=== PATIENT | female | born 1960 | race Caucasian/White ===

== ENCOUNTER 2016-05-01 08:26 | Observation (INO) | payer OTHER ==
[~2016-05-01] VITALS: Ht 170.2 cm; Wt 58.0 kg
[~2016-05-01 08:26] MED LIST: ASPI81TA82 PO; ATOR20TA PO; BRIL90TA PO; CLIN1CAP5 PO; HYDR-3533 PO; MIDO10TA4 PO; RANO500 PO; ZOFR4TAB3 SL
[2016-05-01 08:44] VITALS: BP 126/84; PULSE 91; RESP 16; TEMP 97.9; O2SAT 98
[2016-05-01] MEDS ORDERED: SODIUM CHLOR 0.9% 1000 ML INJ 1,000 ML IV SCH ×2 (08:57→11:33)
[2016-05-01] MEDS ORDERED: SODIUM CHLORIDE 0.9% FLUSH 5 ML FLUSH IVF PRN ×2 (09:00→11:45)
[2016-05-01] MEDS ORDERED: ONDANSETRON HCL 4 MG/2 ML VIAL IVP ONE (09:00)
[2016-05-01] MEDS ORDERED: MORPHINE SULFATE 4 MG/ML INJ IV PUSH ONE ×2 (09:00→11:30)
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
[2016-05-01] MEDS ORDERED: PRIL20CA9 PO (09:08)
[2016-05-01] MEDS ORDERED: MICO1CRE2 VAGINAL (09:08)
[2016-05-01] MEDS ORDERED: ATOR20TA15 PO (09:08)
[2016-05-01] MEDS ORDERED: TICA1TAB PO (09:08)
[2016-05-01] MEDS ORDERED: ASPI1TAB69 PO (09:08)
[2016-05-01] MEDS ORDERED: RANO500 PO (09:08)
[2016-05-01 09:30] LABS: BLOOD, URINE NEG (NEG); GLUCOSE,URINE NEG (NEG); KETONE, URINE NEG (NEG); NITRITE,URINE NEG (NEG)
[2016-05-01 09:32] LABS: METHOD OF COLLECTION CLEAN CATCH; URINE COLOR YELLOW (YELLW/STRAW)
[2016-05-01 09:39] LABS: COMMENT (UR) CULT NOT INDICATED; CULTURE IF INDICATED CULT NOT INDICATED; RBC, URINE 0-3 /hpf (0-3); SQUAMOUS EPITHELIAL CELL URINE 0-5 /hpf (0-5); WBC, URINE 0-2 /hpf (0-5)
--- NOTE | 2016-05-01 09:47 | RADHPO ---
EXAM DATE/TIME: 05/01/2016 09:06 [facility] COMPARISON: No previous studies available for comparison. INDICATIONS : Bilateral flank pain for three days. ORAL CONTRAST: No oral contrast ingested. RADIATION DOSE: 6.82 CTDIvol (mGy) MEDICAL HISTORY : Renal calculi. Pancreatitis. SURGICAL HISTORY : Cholecystectomy. Hysterectomy. ENCOUNTER: Initial ACUITY: 3 days PAIN SCALE: 8/10 LOCATION: Bilateral flank TECHNIQUE: Volumetric scanning of the abdomen and pelvis was performed. Using automated exposure control and ad justment of the mA and/or kV according to patient size, radiation dose was kept as low as reasonably achievable to obtain optimal diagnostic quality images. FINDINGS: LOWER LUNGS: The visualized lower lungs are clear. LIVER: Cholecystectomy clips. Liver is within normal limits. SPLEEN: Normal size without lesion. PANCREAS: Within normal limits. KIDNEYS: Normal in size and shape. There is no mass, stone, or hydronephrosis. ADRENAL GLANDS: Within normal limits. VASCULAR: There is no aortic aneurysm. BOWEL/MESENTERY: Multiple colonic diverticula. No evidence of acute diverticulitis. No evidence of bowel dilatation. N o free air or free fluid. Appendix within normal limits. ABDOMINAL WALL: Within normal limits. RETROPERITONEUM: There is no lymphadenopathy. BLADDER: No wall thickening or mass. REPRODUCTIVE: Prostate calcifications noted. INGUINAL: There is no lymphadenopathy or hernia. MUSCULOSKELETAL: Within normal limits for patient age. CONCLUSION: 1. No acute findings in the abdomen or pelvis. 2. Status post cholecystectomy. 3. Colonic diverticulosis. Thierry Holt MD on May 01, 2016 at 9:34 Board Certified Radiologist. This report was verified electronically.
[2016-05-01 09:56] LABS: AUTOMATED NEUTROPHIL # 2.2 TH/MM3 (1.8-7.7); BASOPHIL % 0.8 % (0.0-2.0); EOSINOPHIL # 0.1 TH/MM3 (0-0.4); EOSINOPHIL % 1.4 % (0.0-4.0); HEMATOCRIT 39.8 % (35.0-46.0); HEMO FLAGS DIFF FINAL; LYMPH % 32.5 % (9.0-44.0); LYMPHOCYTE # 1.2 TH/MM3 (1.0-4.8); MEAN CELL VOLUME 87.2 FL (80.0-100.0); MEAN CORPUSCULAR HEMOGLOBIN 29.8 PG (27.0-34.0); MEAN CORPUSCULAR HGB CONC 34.1 % (32.0-36.0); MONO % 8.4 % (0.0-8.0); NEUT % 56.9 % (16.0-70.0); PLATELET COUNT 221 TH/MM3 (150-450); RED BLOOD COUNT 4.56 MIL/MM3 (4.00-5.30); RED CELL DISTRIBUTION WIDTH 12.5 % (11.6-17.2); WHITE BLOOD COUNT 3.8 TH/MM3 (4.0-11.0)
[2016-05-01 10:06] LABS: CHLORIDE 107 MEQ/L (98-107); POTASSIUM 3.9 MEQ/L (3.5-5.1); SODIUM (NA) 143 MEQ/L (136-145)
[2016-05-01 10:10] VITALS: BP 125/58; PULSE 58; RESP 16; O2SAT 99
[2016-05-01 10:10] LABS: ANION GAP 8 MEQ/L (5-15); BICARBONATE 27.9 MEQ/L (21.0-32.0)
[2016-05-01 10:11] LABS: APTT (PATIENT) 24.3 SEC (24.3-30.1); BLOOD UREA NITROGEN 14 MG/DL (7-18); INTERNATIONAL NORMALIZED RATIO 0.9 RATIO; PROTHROMBIN TIME - PATIENT 10.3 SEC (9.8-11.6)
[2016-05-01 10:13] LABS: ALT (GPT) 17 U/L (10-53); AST (GOT) 10 U/L (15-37); GLOMERULAR FILTRATION RATE 93 ML/MIN (>89)
[2016-05-01 10:15] LABS: TOTAL BILIRUBIN ADULT 0.5 MG/DL (0.2-1.0)
[2016-05-01 10:16] LABS: ALKALINE PHOSPHATASE 60 U/L (45-117)
[2016-05-01] MEDS ORDERED: ONDANSETRON HCL 4 MG/2 ML VIAL IV PUSH ONE (10:30)
[2016-05-01 10:43] VITALS: RESP 16; O2SAT 99
[2016-05-01] MEDS ORDERED: FLUCONAZOLE 100 MG TAB PO ONE (10:45)
[2016-05-01] MEDS ORDERED: ASPIRIN 81 MG CHEW TAB PO ONE (11:00)
[2016-05-01 11:10] LABS: CREATINE KINASE 63 U/L (26-192)
--- NOTE | 2016-05-01 11:11 | RADHPO ---
EXAM DATE/TIME: 05/01/2016 11:02 [facility] COMPARISON: No previous studies available for comparison. INDICATIONS : Chest pain. MEDICAL HISTORY : None. SURGICAL HISTORY : None. ENCOUNTER: Initial ACUITY: 1 day PAIN SCORE: 7/10 LOCATION: Bilateral chest FINDINGS: A single view of the chest demonstrates the lungs to be symmetrically aerated without evidence of mas s, infiltrate or effusion. The cardiomediastinal contours are unremarkable. Osseous structures are intact. CONCLUSION: 1. No acute cardiopulmonary findings. Paulino Ribeiro MD on May 01, 2016 at 11:09 Board Certified Radiologist. This report was verified electronically.
[2016-05-01 11:30] VITALS: BP 137/59; PULSE 67; RESP 16; O2SAT 100
[2016-05-01] MEDS ORDERED: LIDOCAINE VISCOUS 2% SOLN 15 ML UDC PO ONE (11:30)
[2016-05-01] MEDS ORDERED: ALUMINUM/MAGNESIUM/SIMETH 30 ML CUP PO ONE (11:30)
[2016-05-01] MEDS ORDERED: ONDANSETRON HCL 4 MG/2 ML VIAL IV PRN (11:45)
[2016-05-01] MEDS ORDERED: ACETAMINOPHEN 500 MG CPLT PO PRN (11:45)
[2016-05-01] MEDS ORDERED: NITROGLYCERIN 0.4 MG SL 25 TABS/BTL SL PRN (11:45)
[2016-05-01] MEDS ORDERED: MORPHINE SULFATE 4 MG/ML INJ IV PRN (11:45)
[2016-05-01] MEDS ORDERED: ACETAMINOPHEN/HYDROcodone 325 MG/7.5 MG TAB PO PRN (11:45)
[2016-05-01 13:35] LABS: CREATINE KINASE 56 U/L (26-192)
[2016-05-01 14:51] LABS: CHLAMYDIA PCR NOT DETECTED (NOT DETECT); NEISSERIA PCR NOT DETECTED (NOT DETECT)
--- NOTE | 2016-05-01 14:58 | HHI.HP ---
[facility] Primary Care Physician No Primary Care Physician Admission Diagnosis chest pain, lower back pain Diagnoses: (1) Low back pain Diagnosis: Principal (2) Chest pain Diagnosis: Principal (3) Coronary artery disease Diagnosis: Secondary (4) Hyperlipidemia Diagnosis: Secondary (5) History of coronary artery stent placement Diagnosis: Secondary Chief Complaint: Back pain Travel History International Travel<30 Days: No Contact w/Intl Traveler <30 Da: No Traveled to Known Affected Are: No History of Present Illness 55-year-old female with known history of coronary disease, hyperlipidemia, history kidney stones who presented to hospital because of back pain. Patient states for the last 3 days she has been having progressive lower back pain radiating around her right side down into her right groin. She does have history of kidney stones that she thought that it was related to that. The patient did come to emergency department for evaluation. Patient did have full workup done to include pelvic cultures, x-rays, laboratory studies without any significant findings. Patient denied any loss of bowel or bladder control. No unilateral weakness, no paresthesia. While patient was in the ER she developed a midsternal chest pain radiating into her back. She denied any nausea, vomiting, diaphoresis, shortness of breath, dyspnea. Patient was given GI cocktail and morphine. Within 30 minutes the pain resolved and she has not had any recurrent pain. The patient would like to go home. However, patient does have increased risk factors to include age, coronary artery disease, family history of heart disease, history of tobacco use. Is recommended by the ER physician that the patient be observed in the chest pain center for further evaluation. Review of Systems Constitutional: DENIES: Diaphoretic episodes, Fatigue, Fever, Weight gain, Weight loss, Chills, Dizziness, Change in appetite, Night Sweats Eyes: DENIES: Blurred vision, Diplopia, Eye inflammation, Eye pain, Vision loss , Double Vision Ears, nose, mouth, throat: DENIES: Vertigo, Nasal discharge, Throat pain, Ear Pain, Running Nose, Sinus Pain Respiratory: DENIES: Apneas, Cough, Snoring, Wheezing, Hemoptysis, Sputum production, Shortness of breath Cardiovascular: COMPLAINS OF: Chest pain, DENIES: Palpitations, Syncope, Dyspnea on Exertion, Lower Extremity Edema, Orthopnea Gastrointestinal: DENIES: Abdominal pain, Black stools, Bloody stools, Constipation, Diarrhea, Nausea, Vomiting, Difficulty Swallowing, Anorexia Musculoskeletal: COMPLAINS OF: Back pain Neurologic: DENIES: Abnormal gait, Headache, Localized weakness, Paresthesias, Seizures, Speech Problems, Tremor, Poor Balance Past Family Social History Past Medical History Coronary artery disease Hyperlipidemia History of back pain History kidney stone Past Surgical History Cardiac catheterization with stenting Hysterectomy Reported Medications Reported Meds & Active Scripts Active Reported Monistat 3 Vaginal Cream (Miconazole 3 Vaginal Cream) 4 % Cream 1 Appl VAGINAL HS Prilosec (Omeprazole) 20 Mg Cap 20 Mg PO HS Atorvastatin (Atorvastatin Calcium) 20 Mg Tab 20 Mg PO HS Ranexa ER 12 HR (Ranolazine) 500 Mg Tab 500 Mg PO HS Brilinta (Ticagrelor) 60 Mg Tab 75 Mg PO BID Aspirin 81 Mg Tabdr 81 Mg PO DAILY Allergies: Coded Allergies: Cardizem (Verified Allergy, Severe, Bradycardia, 05/01/16) Imitrex (Verified Allergy, Severe, Bradycardia, 05/01/16) Imdur (Verified Allergy, Intermediate, Bradycardia, 05/01/16) Family History Reviewed and significant for heart disease on both sides of the family. Social History Patient quit smoking 10 years ago, prior to that she smoked one pack of cigarettes every 3 days since she was 21 years old. Denies any alcohol or illicit drugs Physical Exam Vital Signs Vital Signs Date Time Temp Pulse Resp B/P Pulse Ox O2 Delivery O2 Flow Rate FiO2 05/01/16 12:38 16 05/01/16 11:30 67 16 137/59 100 Room Air 05/01/16 10:43 16 99 Room Air 05/01/16 10:10 58 16 125/58 99 Room Air 05/01/16 09:48 16 05/01/16 08:44 97.9 91 16 126/84 98 Physical Exam GENERAL: Well-developed, well-nourished, in no acute distress. alert and orientated HEENT: Head is normocephalic without any lesions or masses noted. Facial features are symmetric. Eyes: Pupils equal round reactive to light. Extraocular muscles are intact. Conjunctivae were clear. Oropharyngeal: Pharynx without any erythema edema. Tongue is midline without deviation. Buccal mucosa is moist without any masses or lesions NECK: Supple without any masses. Trachea midline no deviation. No JVD, no bruits are appreciated CARDIAC: Regular rhythm, regular rate. S1/S2 are heard. No murmurs gallops or rubs. LUNGS: Clear to auscultation bilaterally. No wheeze, rhonchi or rales. No use of accessory muscles on inspiration or expiration. ABDOMEN: Soft, nontender. Nondistended. Bowel sounds heard in all 4 quadrants. No organomegaly or masses. Negative rebound, negative guarding EXTREMITIES: No edema, pulses are equal bilaterally. No cyanosis or clubbing NEUROLOGY: Mood and affect appear appropriate. Cranial nerves II through XII grossly intact. Muscle strength 5/5 in upper and lower extremities bilaterally. Deep tendon reflexes are 2+ in upper and lower extremities bilaterally. Laboratory Laboratory Tests Test 05/01/16 05/01/16 05/01/16 05/01/16 09:20 09:40 10:27 13:00 Urine Collection Type CLEAN CATCH Urine Color YELLOW Urine Turbidity CLEAR Urine pH 6.0 Urine Specific [place] 1.025 Urine Protein NEG Urine Glucose (UA) NEG Urine Ketones NEG Urine Occult Blood NEG Urine Nitrite NEG Urine Bilirubin NEG Urine Leukocyte Esterase NEG Urine RBC 0-3 Urine WBC 0-2 Urine Squamous Epithelial 0-5 Cells Microscopic Urinalysis Comment CULT NOT INDICATED White Blood Count 3.8 Red Blood Count 4.56 Hemoglobin 13.6 Hematocrit 39.8 Mean Corpuscular Volume 87.2 Mean Corpuscular Hemoglobin 29.8 Mean Corpuscular Hemoglobin 34.1 Concent Red Cell Distribution Width 12.5 Platelet Count 221 Mean Platelet Volume 8.3 Neutrophils (%) (Auto) 56.9 Lymphocytes (%) (Auto) 32.5 Monocytes (%) (Auto) 8.4 Eosinophils (%) (Auto) 1.4 Basophils (%) (Auto) 0.8 Neutrophils # (Auto) 2.2 Lymphocytes # (Auto) 1.2 Monocytes # (Auto) 0.3 Eosinophils # (Auto) 0.1 Basophils # (Auto) 0.0 CBC Comment DIFF FINAL Differential Comment Prothrombin Time 10.3 Prothromb Time International 0.9 Ratio Activated Partial 24.3 Thromboplast Time Sodium Level 143 Potassium Level 3.9 Chloride Level 107 Carbon Dioxide Level 27.9 Anion Gap 8 Blood Urea Nitrogen 14 Creatinine 0.66 Estimat Glomerular Filtration 93 Rate Random Glucose 95 Calcium Level 9.2 Total Bilirubin 0.5 Aspartate Amino Transf 10 (AST/SGOT) Alanine Aminotransferase 17 (ALT/SGPT) Alkaline Phosphatase 60 Total Creatine Kinase 63 56 Troponin I LESS THAN 0.02 LESS THAN 0.02 Total Protein 7.3 Albumin 4.0 Lipase 126 Clue Cells (Wet Prep) NONE SEEN Vaginal Trichomonas (Wet Prep) NONE SEEN Vaginal Yeast (Wet Prep) NONE SEEN Result Diagram: 05/01/16 0940 05/01/16 0940 Imaging Last Impressions Chest X-Ray 05/01/16 1046 Signed Impressions: Service Date/Time: Sunday, May 01, 2016 11:02 - CONCLUSION: 1. No acute cardiopulmonary findings. Paulino Ribeiro MD Abdomen/Pelvis CT 05/01/16 0857 Signed Impressions: Service Date/Time: Sunday, May 01, 2016 09:06 - CONCLUSION: 1. No acute findings in the abdomen or pelvis. 2. Status post cholecystectomy. 3. Colonic diverticulosis. Thierry Holt MD Assessment and Plan Assessment and Plan Chest pain: Patient with increased risk factors to include age, coronary disease, hyperlipidemia, history of tobacco use, family history of heart disease. Patient had been ruled out for acute coronary event with serial cardiac enzymes remain negative. Serial EKG reviewed by myself and shows sinus rhythm with bradycardia. Will perform a nuclear stress test rule out any underlying ischemia. Patient continue on aspirin and nitroglycerin as needed. Coronary disease, hyperlipidemia: Home medications have been continued Abdominal pain/Low back pain: CT scan does not indicate any abnormality. Wet prep does not indicate any abnormality. Urinalysis is clear. DVT prevention: Sequential compression devices Written by Renato Loaiza PA-C, acting as scribe for Dr. Betancourt on 05/01/16 at 1700. The documentation accurately reflects the work and decisions performed face-to- face by Dr. Betancourt on 05/01/16 at 1700. Discharge disposition Discharge home in stable condition Activity: Ad patricia. Diet: Healthy heart diet Medications per medication reconciliation Follow-up primary medical doctor in one week Problem Qualifiers (1) Low back pain: Qualified Code: M54.5 - Bilateral low back pain without sciatica, unspecified chronicity (2) Chest pain: Qualified Code: R07.9 - Chest pain, unspecified type (3) Coronary artery disease: Qualified Code: I25.10 - Coronary artery disease, angina presence unspecified, unspecified vessel or lesion type, unspecified whether [place] or transplanted heart (4) Hyperlipidemia: Qualified Code: E78.5 - Hyperlipidemia, unspecified hyperlipidemia type Renato Loaiza May 01, 2016 14:58 Nadia Betancourt MD May 01, 2016 17:45
[2016-05-01] MEDS ORDERED: REGADENOSON INJ 0.4 MG/5 ML SYR IV ONE (16:08)
[2016-05-01 16:37] LABS: CREATINE KINASE 52 U/L (26-192)
--- NOTE | 2016-05-01 17:01 | HHI.DCPOC ---
Discharge Care Plan Diagnosis: (1) Chest pain Your Health Problems Are: Chest Pain Goals to Promote Your Health * To prevent worsening of your condition and complications * To maintain your health at the optimal level Directions to Meet Your Goals Take your medications as prescribed Follow your dietary instruction Follow activity as directed Keep your appointments as scheduled Take your immunizations and boosters as scheduled If your symptoms worsen call your PCP, if no PCP go to Urgent Care Center or Emergency Room Smoking is Dangerous to Your Health. Avoid second hand smoke Call the 24-hour hour crisis hotline for domestic abuse at Renato Loaiza May 01, 2016 17:01
--- NOTE | 2016-05-01 17:10 | RADHPO ---
EXAM DATE/TIME: 05/01/2016 16:16 [facility] COMPARISON: No previous studies available for comparison. INDICATIONS : Chest pain and palpitations for 1 day. Angina. Coronary artery disease. DOSE: 25.7 mCi Tc99m Myoview at stress. 8.1 mCi Tc99m Myoview at rest. 0.4 mg Lexiscan STRESS SYMPTOMS: Chest tightness and shortness of breath. EJECTION FRACTION: 67% MEDICAL HISTORY : Cardiovascular disease. Hypertension. SURGICAL HISTORY : Hysterectomy. Cholecystectomy. Coronary artery stent. ENCOUNTER: Initial ACUITY: 1 day PAIN SCALE: 3/10 LOCATION: Bilateral chest TECHNIQUE: The patient underwent pharmacologic stress with infusion of prescribed dose. Continuous ECG tracing was monitored during stress. Gated SPECT imaging was performed after stress and conventional SPECT i maging was performed at rest. The examination was performed on a SPECT/CT scanner, both attenuation and non-corrected datasets were reviewed. FINDINGS: DISTRIBUTION: The maximum perfused segment at stress is in the inferior and lateral wall. PERFUSION STUDY: The pattern of perfusion at stress is within normal limits. GATED STUDY: There is intact wall motion and thickening without hypokinetic or dyskinetic segments. CONCLUSION: 1. No significant reversibility to suggest ischemia. 2. Normal wall motion with ejection fraction 67%. RISK CATEGORY: Low (<1% Annual Mortality Rate) Jaun Salazar MD on May 01, 2016 at 17:08 Board Certified Radiologist. This report was verified electronically.
[2016-05-01 17:25] VITALS: BP 136/58; PULSE 62; RESP 16; O2SAT 98
[2016-05-01] MEDS ORDERED: ZOFR4TAB PO (17:27)
[2016-05-01] MEDS ORDERED: ATORVASTATIN 20 MG TAB PO SCH (21:00)
[2016-05-01] MEDS ORDERED: RANOLAZINE 500 MG EXTENDED RELEASE TAB PO SCH (21:00)
[2016-05-01] MEDS ORDERED: SODIUM CHLORIDE 0.9% FLUSH 5 ML FLUSH IVF SCH (21:00)
[2016-05-01] MEDS ORDERED: TICAGRELOR 60 MG TAB PO SCH (21:00)
[2016-05-01] MEDS ORDERED: PANTOPRAZOLE SOD 20 MG DELAYED RELEASE TAB PO SCH (21:00)
[2016-05-02] MEDS ORDERED: ASPIRIN EC 81 MG TABEC PO SCH (09:00)
[2016-05-02] MEDS ORDERED: PNEUMOCOCCAL POLYVALENT INJ 25 MCG/0.5 ML SYR IM ONE (10:00)
--- NOTE | 2016-05-02 14:32 | EKG ---
Date Performed: 05/01/2016 Time Performed: 15:53:00 PTAGE: 55 years EKG: Sinus rhythm Normal ECG PREVIOUS TRACING : 05/01/2016 13.23 DOCTOR: Lit Spears Interpretating Date/Time 05/02/2016 14:28:46
--- NOTE | 2016-05-02 14:36 | EKG ---
Date Performed: 05/01/2016 Time Performed: 13:23:26 PTAGE: 55 years EKG: Sinus rhythm Normal ECG PREVIOUS TRACING : 05/01/2016 10.51 DOCTOR: Lit Spears Interpretating Date/Time 05/02/2016 14:31:49
--- NOTE | 2016-05-02 14:40 | EKG ---
Date Performed: 05/01/2016 Time Performed: 10:51:44 PTAGE: 55 years EKG: Sinus bradycardia Prolonged QT interval Borderline ECG NO PREVIOUS TRACING DOCTOR: Lit Spears Interpretating Date/Time 05/02/2016 14:34:38
--- NOTE | 2016-05-03 12:36 | TR ---
Date Performed: 05/01/2016 Time Performed: 16:20:57 DOCTOR: Lisa Hayden DRUG LIST: CLINICAL HISTORY: CHEST PAIN REASON FOR TEST: REASON FOR ENDING: OBSERVATION: CONCLUSION: Lexiscan stress test was performed under standard four minute protocol. [place]ion[place] e was injected one minute prior to ending the test. No electrocardiographic abormalities were present to suggest ischemia. Nuclear imaging and interpretation are pending. COMMENTS:
== END 2016-05-01 18:32 | disposition home or self-care (01) ==
LOC: PHED 08:26 → PHEDA 11:31 → UNDOADMOB 11:31 → PHEDA 16:22 → PHEDH 16:22 → UNDODISOB 18:32
PROVIDERS: ADMIT Family Medicine; ATTEND Family Medicine
DX: R07.9 Chest pain, unspecified (principal); I25.10 Atherosclerotic heart disease of native coronary artery without angina pectoris; I10 Essential (primary) hypertension; M54.5 Low back pain; E78.5 Hyperlipidemia, unspecified; E78.00 Pure hypercholesterolemia, unspecified; K57.90 Diverticulosis of intestine, part unspecified, without perforation or abscess without bleeding; Z95.5 Presence of coronary angioplasty implant and graft; Z86.73 Personal history of transient ischemic attack (TIA), and cerebral infarction without residual deficits; Z87.442 Personal history of urinary calculi; Z90.49 Acquired absence of other specified parts of digestive tract; Z87.891 Personal history of nicotine dependence; Z82.49 Family history of ischemic heart disease and other diseases of the circulatory system
CPT/HCPCS: 71010; 74176; 78452; 80053; 81001; 82550; 83690; 84484; 85025; 85610; 85730; 87210; 87491; 87591; 93005; 93017; 96361; 96374; 96375; 96376; 99285; A9502; G0378; J2270; J2405; J2785; J7030

== ENCOUNTER 2016-08-24 10:44 | Emergency (ER) | payer OTHER ==
[~2016-08-24 10:44] MED LIST changes: +ASPI1TAB69 PO; -ASPI81TA82 PO; -ATOR20TA PO; +ATOR20TA15 PO; -BRIL90TA PO; -CLIN1CAP5 PO; -HYDR-3533 PO; +MICO1CRE2 VAGINAL; -MIDO10TA4 PO; +PRIL20CA9 PO; +TICA1TAB PO; +ZOFR4TAB PO; -ZOFR4TAB3 SL
[2016-08-24 10:48] VITALS: BP 131/86; PULSE 69; RESP 20; TEMP 97.9; O2SAT 97
[2016-08-24] MEDS ORDERED: ASPI81CH CHEW (11:07)
--- NOTE | 2016-08-24 11:41 | PD ---
HPI Chief Complaint: Cold / Flu Symptoms Time Seen by Provider: 11:36 Travel History International Travel<30 days: No Contact w/Intl Traveler<30days: No Traveled to known affect area: No History of Present Illness HPI 55-year-old female with history of stents presents to the emergency room for evaluation of cough, congestion, fever, and malaise for the past 9 days. Symptoms started with nonproductive cough and fever. Maximum temperature was 103 one week ago. She has been taking tybh-exp-kvgijse NyQuil, Sudafed, Mucinex, and Robitussin without any relief in symptoms. She reports occasional shortness of breath with coughing and dyspnea on exertion. Patient has been able to work since onset of symptoms. Patient reports worsening of symptoms 2 days ago with recurrence of fever. Her fever 2 days ago was 100.2. Patient smokes one to 2 cigarettes a day. Only medication is baby aspirin daily. PFSH Past Medical History Hx Anticoagulant Therapy: Yes Arthritis: No Asthma: No Autoimmune Disease: No Anxiety: No Depression: No Heart Rhythm Problems: No Cancer: No Cardiovascular Problems: Yes High Cholesterol: Yes Chemotherapy: No Chest Pain: Yes Congestive Heart Failure: No COPD: No Cerebrovascular Accident: Yes (TIA) Coronary Artery Disease: Yes Diabetes: No Diminished Hearing: No Endocrine: No GERD: Yes Genitourinary: No Headaches: Yes Hiatal Hernia: No Immune Disorder: No Kidney Stones: Yes Musculoskeletal: No Neurologic: No Psychiatric: No Reproductive: No Respiratory: No Migraines: Yes Pancreatitis: Yes Pneumonia: Yes Radiation Therapy: No Renal Failure: No Seizures: No Sickle Cell Disease: No Sleep Apnea: No Thyroid Disease: No Ulcer: No Influenza Vaccination: No ?: Not Past Surgical History AICD: No Arteriovenous Shunt: No Cardiac Surgery: Yes (HEART CATHS 6 CARDIAC STENTS) Cholecystectomy: Yes Coronary Artery Bypass Graft: Yes (6 STENTS) Ear Surgery: No Endocrine Surgery: No Eye Surgery: No Gynecologic Surgery: Yes (HYSTERECTOMY) Hysterectomy: Yes Insulin Pump: No Joint Replacement: No Oral Surgery: No Pacemaker: No Thoracic Surgery: No Other Surgery: Yes (HYSTERECTOMY GALLBLADDER ) Social History Alcohol Use: Yes (OCCASIONALLY) Tobacco Use: Yes (2 CIGS PER DAY) Substance Use: No Allergies-Medications (Allergen,Severity, Reaction): Coded Allergies: Cardizem (Verified Allergy, Severe, Bradycardia, 08/24/16) Imitrex (Verified Allergy, Severe, Bradycardia, 08/24/16) Imdur (Verified Allergy, Intermediate, Bradycardia, 08/24/16) Reported Meds & Prescriptions Reported Meds & Active Scripts Active Reported Aspirin 81 Mg Chew 81 Mg CHEW DAILY Atorvastatin (Atorvastatin Calcium) 20 Mg Tab 20 Mg PO HS Ranexa ER 12 HR (Ranolazine) 500 Mg Tab 500 Mg PO HS Brilinta (Ticagrelor) 60 Mg Tab 75 Mg PO BID Review of Systems Except as stated in HPI: all other systems reviewed are Neg Physical Exam Narrative GENERAL: Well-nourished, well-developed female in no acute distress. Afebrile. Ambulatory. SKIN: Focused skin assessment warm/dry. HEAD: Normocephalic. EYES: No scleral icterus. No injection or drainage. ENT: Mucosa pink and moist. No erythema or exudates. No uvular edema. No uvular , palatal, or tonsillar deviation. Airway patent. Nasal turbinates appear normal without nasal blood, purulent drainage or septal hematoma. EARS: Bilateral pinnae and external canals appear within normal limits. Bilateral tympanic membranes without erythema, dullness or perforation. NECK: Supple, trachea midline. No JVD or lymphadenopathy. CARDIOVASCULAR: Regular rate and rhythm without murmurs, gallops, or rubs. RESPIRATORY: Breath sounds equal bilaterally. No accessory muscle use. Data Data Last Documented VS Vital Signs Date Time Temp Pulse Resp B/P Pulse Ox O2 Delivery O2 Flow Rate FiO2 08/24/16 10:48 97.9 69 20 131/86 97 Orders Chest, Pa & Lat (08/24/16 ) Influenzae A/B Antigen (08/24/16 11:35) MDM Medical Decision Making Medical Screen Exam Complete: Yes Emergency Medical Condition: Yes Medical Record Reviewed: Yes Differential Diagnosis Cough, bronchitis, URI, pneumonia Narrative Course 55-year-old female presents to the emergency room for evaluation of nonproductive cough, congestion, fever, and malaise for the past 9 days. Max temperature at home was 103 7 days ago. Ziqf-kxh-roftaay medications have not been improving symptoms. Patient is afebrile and well-appearing in the emergency room. Vital signs stable. No increased work of breathing. Lungs sounds clear and equal bilaterally. Chest x-ray is negative. Given history of fevers, patient will be treated for bacterial sinusitis. Told to follow up with a primary care physician or return for worsening symptoms. She understands and agrees to plan. Diagnosis Primary Impression: Upper respiratory infection Qualified Code: J06.9 - Upper respiratory tract infection, unspecified type Referrals: Primary Care Physician Patient Instructions: General Instructions, Upper Respiratory Infection (ED) Additional Instructions: Rest and drink plenty of fluids. Take azithromycin as directed, until gone. Take guaifenesin with codeine at night as directed, as needed for cough. Apply ice to the affected area for 20 minutes at a time, as needed for pain and swelling. Follow-up with a primary care physician. Return to the emergency room for worsening symptoms. Scripts Azithromycin 250 Mg Pef072 Mg PO DIRECTED #6 TAB Ref 0 Take 2 tabs (500 mg) on day 1 then 1 tab daily x 4 days. Prov:Adonis Montalvo MD 08/24/16 Guaifenesin-Codeine Liq 100-10 Mg/5 Ml Soln5 Ml PO HS PRN (COUGH) #50 ML Ref 0 Prov:Adonis Montalvo MD 08/24/16 Disposition: 01 DISCHARGE HOME Condition: Stable Stephenie Summers Aug 24, 2016 11:41
--- NOTE | 2016-08-24 12:10 | RADHPO ---
EXAM DATE/TIME: 08/24/2016 11:48 [facility] COMPARISON: CHEST SINGLE AP, May 01, 2016, 11:02. INDICATIONS : Cough. MEDICAL HISTORY : None. SURGICAL HISTORY : None. ENCOUNTER: Initial ACUITY: 1 week PAIN SCORE: 2/10 LOCATION: Bilateral chest FINDINGS: PA and lateral views of the chest demonstrate the lungs to be symmetrically aerated without evidence of mass, infiltrate or effusion. The cardiomediastinal contours demonstrate a coronary stent in plac e but are otherwise unremarkable. Osseous structures are intact. CONCLUSION: 1. No acute cardiopulmonary findings. Paulino Ribeiro MD on August 24, 2016 at 12:08 Board Certified Radiologist. This report was verified electronically.
[2016-08-24] MEDS ORDERED: GUAI100S5 PO (12:16)
[2016-08-24] MEDS ORDERED: AZIT250T3 PO (12:16)
== END 2016-08-24 12:42 | disposition home or self-care (01) ==
LOC: PHEFT 10:44
DX: J06.9 Acute upper respiratory infection, unspecified (principal); F17.210 Nicotine dependence, cigarettes, uncomplicated; E78.00 Pure hypercholesterolemia, unspecified; I25.10 Atherosclerotic heart disease of native coronary artery without angina pectoris; K21.9 Gastro-esophageal reflux disease without esophagitis; Z79.01 Long term (current) use of anticoagulants; Z87.442 Personal history of urinary calculi; Z86.73 Personal history of transient ischemic attack (TIA), and cerebral infarction without residual deficits
CPT/HCPCS: 71020; 87804; 99284

== ENCOUNTER 2016-09-02 14:46 | Emergency (ER) | payer SELFPAY ==
[~2016-09-02] VITALS: Ht 170.2 cm; Wt 60.0 kg
[~2016-09-02 14:46] MED LIST changes: -ASPI1TAB69 PO; +ASPI81CH CHEW; +AZIT250T3 PO; +GUAI100S5 PO; -MICO1CRE2 VAGINAL; -PRIL20CA9 PO; -ZOFR4TAB PO
[2016-09-02 14:52] VITALS: BP 123/82; PULSE 93; RESP 15; TEMP 98.8; O2SAT 97
--- NOTE | 2016-09-02 15:25 | PD ---
HPI . Cold symptoms Chief Complaint: Cold / Flu Symptoms Time Seen by Provider: 15:14 Travel History International Travel<30 days: No Contact w/Intl Traveler<30days: No Traveled to known affect area: No History of Present Illness HPI Patient presents complaining with persistent cold symptoms. The patient was seen here on 08/24 for same. At that time, she reported that she had been ill for 9 days. It is now 09/02 which means that she has been sick for about 18 days. She reports low-grade fevers at night of about 100. She reports nasal congestion and pressure. She has a nonproductive cough. She reports a headache. She has been taking some iucr-xll-czdzsnt medications without relief. Patient reports she was treated with a Z-Bonifacio when she was here on 08/24. She states that the Z-Bonifacio provided no relief. PFSH Past Medical History Hx Anticoagulant Therapy: Yes Arthritis: No Asthma: No Autoimmune Disease: No Anxiety: No Depression: No Heart Rhythm Problems: No Cancer: No Cardiovascular Problems: Yes High Cholesterol: Yes Chemotherapy: No Chest Pain: Yes Congestive Heart Failure: No COPD: No Cerebrovascular Accident: Yes (TIA) Coronary Artery Disease: Yes Diabetes: No Diminished Hearing: No Endocrine: No GERD: Yes Genitourinary: No Headaches: Yes Hiatal Hernia: No Immune Disorder: No Kidney Stones: Yes Musculoskeletal: No Neurologic: No Psychiatric: No Reproductive: No Respiratory: No Migraines: Yes Pancreatitis: Yes Pneumonia: Yes Radiation Therapy: No Renal Failure: No Seizures: No Sickle Cell Disease: No Sleep Apnea: No Thyroid Disease: No Ulcer: No Tetanus Vaccination: > 5 Years Influenza Vaccination: No ?: Not Past Surgical History AICD: No Arteriovenous Shunt: No Cardiac Surgery: Yes (HEART CATHS 6 CARDIAC STENTS) Cholecystectomy: Yes Coronary Artery Bypass Graft: Yes (6 STENTS) Ear Surgery: No Endocrine Surgery: No Eye Surgery: No Gynecologic Surgery: Yes (HYSTERECTOMY) Hysterectomy: Yes Insulin Pump: No Joint Replacement: No Oral Surgery: No Pacemaker: No Thoracic Surgery: No Other Surgery: Yes (HYSTERECTOMY GALLBLADDER ) Social History Alcohol Use: Yes (OCCASIONALLY) Tobacco Use: Yes (2 CIGS PER DAY) Substance Use: No Allergies-Medications (Allergen,Severity, Reaction): Coded Allergies: Cardizem (Verified Allergy, Severe, Bradycardia, 09/02/16) Imitrex (Verified Allergy, Severe, Bradycardia, 09/02/16) Imdur (Verified Allergy, Intermediate, Bradycardia, 09/02/16) Reported Meds & Prescriptions Reported Meds & Active Scripts Active Prednisone (48) 10 mg tab Dose Pack (Prednisone) 10 Mg Dspk 10 Mg PO DIRECTED Ventolin Hfa 18 GM Inh (Albuterol Sulfate) 90 Mcg/Act Aer 2 Puff INH Q4H PRN Reported Aspirin 81 Mg Chew 81 Mg CHEW DAILY Review of Systems Except as stated in HPI: all other systems reviewed are Neg General / Constitutional: Positive: Fever, Chills HENT: Positive: Headaches, Congestion Respiratory: Positive: Cough Physical Exam Narrative GENERAL: Patient is lying on the stretcher in no acute distress. SKIN: Warm and dry. HEAD: Atraumatic. Normocephalic. EYES: Pupils equal and round. Extraocular movements are intact. ENT: No nasal bleeding or discharge. Mucous membranes pink and moist. Sinuses are nontender to percussion. NECK: Trachea midline. Neck is supple. No cervical lymphadenopathy. CARDIOVASCULAR: Regular rate and rhythm. Heart sounds are normal. RESPIRATORY: No accessory muscle use. Lungs have good air movement throughout. She has an occasional end-expiratory wheeze. She does have an asthmatic sounding cough. She is a smoker. GASTROINTESTINAL: Abdomen soft, non-tender, nondistended. MUSCULOSKELETAL: No obvious deformities. No edema. NEUROLOGICAL: Awake and alert. No obvious cranial nerve deficits. Motor grossly within normal limits. Normal speech. PSYCHIATRIC: Appropriate mood and affect; insight and judgment normal. Data Data Last Documented VS Vital Signs Date Time Temp Pulse Resp B/P Pulse Ox O2 Delivery O2 Flow Rate FiO2 09/02/16 14:59 18 97 Room Air 09/02/16 14:52 98.8 93 123/82 Orders Chest, Pa & Lat (09/02/16 15:18) MDM Medical Decision Making Medical Screen Exam Complete: Yes Emergency Medical Condition: Yes Differential Diagnosis Differential diagnosis includes but is not limited to influenza, upper respiratory infection, bronchitis, pneumonia Narrative Course Patient presents for repeat evaluation of cold symptoms. She was seen here on for same. She had a negative chest x-ray at that time. I have ordered a repeat chest x-ray to rule out pneumonia. I feel that she probably just has a viral illness which is lingering. Chest x-ray to my interpretation is negative for infiltrate. She does have hyperexpanded lungs. Radiologist's interpretation: "Negative chest for acute disease. Emergency Department evaluation reveals no emergency medical condition. The patient is stable for discharge to home. Diagnosis Primary Impression: Bronchitis Patient Instructions: Acute Bronchitis (DC), General Instructions Additional Instructions: I recommend the use of a Neti Pot. You may use a nasal spray such as Afrin for up to 3 days as needed for nasal congestion. You may take an fmwi-uht-frapjny antihistamine such as Zyrtec, [place] or Claritin as needed for runny secretions. You may take pseudoephedrine as needed for congestion. You will need to sign for this at the pharmacy. You may take plain Mucinex, 1200 mg twice a day as needed for thick secretions. You may take a cough syrup such as Delsym as needed for cough. Motrin as needed for fever and body aches. Throat lozenges/sprays as needed for sore throat. Warm salt water gargles for sore throat. Hot tea with lemon and honey also helps soothe a sore throat. Med/Other Pt SpecificInfo: Prescription(s) given Scripts Prednisone (48) 10 mg tab Dose Pack 10 Mg Dspk10 Mg PO DIRECTED #1 DSPK Ref 0 Prov:Lucia Gaona MD 09/02/16 Albuterol 18 GM Inh (Ventolin Hfa 18 GM Inh)90 Mcg/Act Aer2 Puff INH Q4H PRN ( SHORTNESS OF BREATH) #1 INHALER Ref 0 Prov:Lucia Gaona MD 09/02/16 Disposition: 01 DISCHARGE HOME Condition: Stable Lucia Gaona MD Sep 02, 2016 15:24
[2016-09-02] MEDS ORDERED: PRED10PA2 PO (15:41)
[2016-09-02] MEDS ORDERED: VENTAER INH (15:41)
--- NOTE | 2016-09-02 15:41 | RADRPT ---
EXAM DATE/TIME: 09/02/2016 15:28 [facility] COMPARISON: CHEST PA & LAT, August 24, 2016, 11:48. INDICATIONS : Cough and fever. MEDICAL HISTORY : Cardiovascular disease. Hypertension SURGICAL HISTORY : Coronary artery stent. Hysterectomy. Cholecystectomy. ENCOUNTER: Initial ACUITY: 3 weeks PAIN SCORE: 6/10 LOCATION: Bilateral chest FINDINGS: PA and lateral views of the chest demonstrate the lungs to be symmetrically aerated without evidence of mass, infiltrate or effusion. Coronary stent is noted.. Osseous structures are intact. CONCLUSION: Negative chest for acute disease. Jomar Ribeiro MD FACR on September 02, 2016 at 15:38 Board Certified Radiologist. This report was verified electronically.
== END 2016-09-02 16:00 | disposition home or self-care (01) ==
LOC: PHEFT 14:46
DX: J40 Bronchitis, not specified as acute or chronic (principal); R50.9 Fever, unspecified; R09.81 Nasal congestion; R51 Headache; E78.00 Pure hypercholesterolemia, unspecified; Z72.0 Tobacco use; Z79.01 Long term (current) use of anticoagulants; Z86.79 Personal history of other diseases of the circulatory system; Z87.19 Personal history of other diseases of the digestive system; Z87.442 Personal history of urinary calculi; Z86.69 Personal history of other diseases of the nervous system and sense organs
CPT/HCPCS: 71020; 99284

== ENCOUNTER 2017-07-03 08:54 | Emergency (ER) | payer SELFPAY ==
[2017-07-03] VITALS (8 sets, daily range): BP systolic 136–185; BP diastolic 66–80; PULSE 72–86; RESP 16–18; TEMP 97.5–98.7; O2SAT 98–99
[~2017-07-03] VITALS: Ht 170.2 cm; Wt 66.0 kg
[~2017-07-03 08:54] MED LIST changes: +ASPI-516 CHEW; -ASPI81CH CHEW; -ATOR20TA15 PO; -AZIT250T3 PO; -GUAI100S5 PO; +PRED10PA2 PO; -RANO500 PO; -TICA1TAB PO; +VENTAER INH
[2017-07-03] MEDS ORDERED: SODIUM CHLORIDE 0.9% FLUSH 10 ML FLUSH IVF PRN (10:45)
[2017-07-03] MEDS ORDERED: MORPHINE SULFATE 4 MG/ML INJ IV PUSH ONE (10:45)
[2017-07-03] MEDS ORDERED: ONDANSETRON HCL 4 MG/2 ML VIAL IVP ONE (10:45)
--- NOTE | 2017-07-03 10:56 | PD ---
HPI Chief Complaint: Pain: Acute or Chronic Time Seen by Provider: 10:21 Travel History International Travel<30 days: No Contact w/Intl Traveler<30days: No Traveled to known affect area: No History of Present Illness HPI 56-year-old female with a history of cardiac stents, diverticulitis presents emergency department complaining of left groin pain and feeling weak and dizzy. Says that the groin pain started 3 days ago and she describes it as tight, aching, and radiating to the proximal left anterior thigh. Patient states that the pain started as she was sitting watching TV. Says the pain is worse with flexion of her left hip that decreases with rest. Patient's position of comfort is with her knees flexed. Last night she was sitting on the couch and began feeling weak and "dizzy". Patient states that over the last couple days she has started feeling more tired and had decreased energy. Says she felt "lethargic". She began having nausea last night. She denies fever, chills, chest pain, shortness of breath, urinary symptoms, vaginal discharge, upper respiratory type symptoms. Her last menstrual period was 20 years ago after she had a hysterectomy. Denies any recent travel, surgeries, history of clots. She does not currently take any blood thinners although says that she had a "mini stroke" 10 years ago and was taking Brilinta up to 1 year ago. Patient does not take aspirin every day. She has not seen a shellfish processing machine tender in over a year. Says her last stress test was 2 years ago and it was normal. PFSH Past Medical History Hx Anticoagulant Therapy: No Arthritis: No Asthma: No Autoimmune Disease: No Anxiety: No Depression: No Heart Rhythm Problems: No Cancer: No Cardiovascular Problems: Yes High Cholesterol: Yes Chemotherapy: No Chest Pain: Yes Congestive Heart Failure: No COPD: No Cerebrovascular Accident: Yes (TIA) Coronary Artery Disease: Yes Diabetes: No Diminished Hearing: No Endocrine: No GERD: Yes Genitourinary: No Headaches: Yes Hiatal Hernia: No Immune Disorder: No Kidney Stones: Yes Musculoskeletal: No Neurologic: No Psychiatric: No Reproductive: No Respiratory: No Migraines: Yes Pancreatitis: Yes Pneumonia: Yes Radiation Therapy: No Renal Failure: No Seizures: No Sickle Cell Disease: No Sleep Apnea: No Thyroid Disease: No Ulcer: No Tetanus Vaccination: Unknown Influenza Vaccination: No ?: Not Past Surgical History AICD: No Arteriovenous Shunt: No Cardiac Surgery: Yes (HEART CATHS 6 CARDIAC STENTS) Cholecystectomy: Yes Coronary Artery Bypass Graft: Yes (6 STENTS) Ear Surgery: No Endocrine Surgery: No Eye Surgery: No Gynecologic Surgery: Yes (HYSTERECTOMY) Hysterectomy: Yes Insulin Pump: No Joint Replacement: No Oral Surgery: No Pacemaker: No Thoracic Surgery: No Other Surgery: Yes (HYSTERECTOMY GALLBLADDER ) Social History Alcohol Use: Yes (OCCASIONALLY) Tobacco Use: Yes (2 CIGS PER DAY) Substance Use: No Allergies-Medications (Allergen,Severity, Reaction): Coded Allergies: diltiazem (Unverified Allergy, Severe, Bradycardia, 07/03/17) sumatriptan (Unverified Allergy, Severe, Bradycardia, 07/03/17) isosorbide (Unverified Allergy, Intermediate, Bradycardia, 07/03/17) Reported Meds & Prescriptions Reported Meds & Active Scripts Active Tramadol (Tramadol HCl) 50 Mg Tab 50 Mg PO Q8H PRN 3 Days Cipro (Ciprofloxacin HCl) 500 Mg Tab 500 Mg PO BID 10 Days Flagyl (Metronidazole) 500 Mg Tab 500 Mg PO TID 10 Days Reported Aspirin 81 Mg Chew 81 Mg CHEW DAILY Review of Systems Except as stated in HPI: all other systems reviewed are Neg Physical Exam Narrative GENERAL: WD, WN in NAD SKIN: Focused skin assessment warm/dry. HEAD: Atraumatic. Normocephalic. EYES: Pupils equal and round. No scleral icterus. No injection or drainage. EOMI ENT: No nasal bleeding or discharge. Mucous membranes pink and moist. NECK: Trachea midline. No JVD. No lymphadenopathy CARDIOVASCULAR: Regular rate and rhythm. No murmur appreciated. RESPIRATORY: No accessory muscle use. Clear to auscultation. Breath sounds equal bilaterally. GASTROINTESTINAL: Abdomen soft. Tenderness palpation left lower quadrant without rebound tenderness. No masses or organomegaly. Normoactive bowel sounds. Mild tenderness palpation to the groin. MUSCULOSKELETAL: No obvious deformities. No clubbing. No cyanosis. No edema. Obvious pain with flexion of the left hip NEUROLOGICAL: Awake and alert. No obvious cranial nerve deficits. Motor grossly within normal limits. Normal speech. PSYCHIATRIC: Appropriate mood and affect; insight and judgment normal. Data Data Last Documented VS Vital Signs Date Time Temp Pulse Resp B/P (MAP) Pulse Ox O2 Delivery O2 Flow Rate FiO2 07/03/17 15:17 16 07/03/17 14:43 83 141/77 (98) 98 Room Air 07/03/17 08:58 97.5 Orders Orders Complete Blood Count With Diff (07/03/17 10:44) Comprehensive Metabolic Panel (07/03/17 10:44) Lipase (07/03/17 10:44) Prothrombin Time / Inr (Pt) (07/03/17 10:44) Act Partial Throm Time (Ptt) (07/03/17 10:44) Urinalysis - C+S If Indicated (07/03/17 10:44) Iv Access Insert/Monitor (07/03/17 10:44) Ecg Monitoring (07/03/17 10:44) Oximetry (07/03/17 10:44) Morphine Inj (Morphine Inj) (07/03/17 10:45) Ondansetron Inj (Zofran Inj) (07/03/17 10:45) Ckmb (Isoenzyme) Profile (07/03/17 10:44) Troponin I (07/03/17 10:44) Chest, Single Ap (07/03/17 10:44) Sodium Chloride 0.9% Flush (Ns Flush) (07/03/17 10:45) Ed Poc Ultrasound (07/03/17 ) Ondansetron Odt (Zofran Odt) (07/03/17 13:00) Morphine Inj (Morphine Inj) (07/03/17 13:00) Vascular Access Team Consult/P PRN (07/03/17 13:33) Vascular Poc Ultrasound (07/03/17 ) Electrocardiogram (07/03/17 09:11) Ct Abd/Pel W/O Iv Contrast (07/03/17 ) Us Leg Venous Doppler (07/03/17 ) Morphine Inj (Morphine Inj) (07/03/17 14:45) Ciprofloxacin (Cipro) (07/03/17 16:15) Metronidazole (Flagyl) (07/03/17 16:15) Ed Discharge Order (07/03/17 16:16) Labs Laboratory Tests Test 07/03/17 11:00 07/03/17 11:45 Urine Collection Type VOIDED Urine Color YELLOW Urine Turbidity CLEAR Urine pH 6.0 Urine Specific [place] LESS/EQUAL 1.005 Urine Protein NEG mg/dL Urine Glucose (UA) NEG mg/dL Urine Ketones NEG mg/dL Urine Occult Blood NEG Urine Nitrite NEG Urine Bilirubin NEG Urine Urobilinogen 0.2 MG/DL Urine Leukocyte Esterase NEG Urine WBC 0-2 /hpf Urine Squamous Epithelial Cells 0-3 /hpf Urine Transitional Epithelial Cells OCC /hpf Microscopic Urinalysis Comment CULT NOT INDICATED White Blood Count 6.3 TH/MM3 Red Blood Count 4.85 MIL/MM3 Hemoglobin 14.3 GM/DL Hematocrit 42.6 % Mean Corpuscular Volume 87.9 FL Mean Corpuscular Hemoglobin 29.5 PG Mean Corpuscular Hemoglobin Concent 33.5 % Red Cell Distribution Width 12.5 % Platelet Count 341 TH/MM3 Mean Platelet Volume 8.7 FL Neutrophils (%) (Auto) 65.2 % Lymphocytes (%) (Auto) 23.3 % Monocytes (%) (Auto) 5.8 % Eosinophils (%) (Auto) 1.4 % Basophils (%) (Auto) 4.3 % Neutrophils # (Auto) 4.0 TH/MM3 Lymphocytes # (Auto) 1.5 TH/MM3 Monocytes # (Auto) 0.4 TH/MM3 Eosinophils # (Auto) 0.1 TH/MM3 Basophils # (Auto) 0.3 TH/MM3 CBC Comment DIFF FINAL Differential Comment Prothrombin Time 10.0 SEC Prothromb Time International Ratio 1.0 RATIO Activated Partial Thromboplast Time 21.0 SEC Blood Urea Nitrogen 12 MG/DL Creatinine 0.51 MG/DL Random Glucose 90 MG/DL Total Protein 7.1 GM/DL Albumin 3.5 GM/DL Calcium Level 9.1 MG/DL Alkaline Phosphatase 85 U/L Aspartate Amino Transf (AST/SGOT) 25 U/L Alanine Aminotransferase (ALT/SGPT) 14 U/L Total Bilirubin 0.3 MG/DL Sodium Level 139 MEQ/L Potassium Level 4.5 MEQ/L Chloride Level 108 MEQ/L Carbon Dioxide Level 26.4 MEQ/L Anion Gap 5 MEQ/L Estimat Glomerular Filtration Rate 125 ML/MIN Total Creatine Kinase 93 U/L Troponin I LESS THAN 0.02 NG/ML Lipase 107 U/L MDM Medical Decision Making Medical Screen Exam Complete: Yes Emergency Medical Condition: Yes Differential Diagnosis Diverticulitis, ACS, abdominal pain, groin pull Narrative Course 56-year-old female with a history of cardiac stents, diverticulitis presents emergency department complaining of left groin pain and feeling weak and dizzy. Says that the groin pain started 3 days ago and she describes it as tight, aching, and radiating to the proximal left anterior thigh. Patient states that the pain started as she was sitting watching TV. Says the pain is worse with flexion of her left hip that decreases with rest. Patient's position of comfort is with her knees flexed. Last night she was sitting on the couch and began feeling weak and "dizzy". Patient states that over the last couple days she has started feeling more tired and had decreased energy. Says she felt "lethargic". She began having nausea last night. She denies fever, chills, chest pain, shortness of breath, urinary symptoms, vaginal discharge, upper respiratory type symptoms. Says her bowel movement have been normal. Her last menstrual period was 20 years ago after she had a hysterectomy. Denies any recent travel, surgeries, history of clots. She does not currently take any blood thinners although says that she had a "mini stroke " 10 years ago and was taking Brilinta up to 1 year ago. Patient does not take aspirin every day. She has not seen a shellfish processing machine tender in over a year. Says her last stress test was 2 years ago and it was normal. Vital signs stable. EKG shows sinus rhythm without STEMI. Labs and imaging studies ordered. CBC & BMP Diagram 07/03/17 11:45 Total Protein 7.1, Albumin 3.5, Calcium Level 9.1, Alkaline Phosphatase 85, Aspartate Amino Transf (AST/SGOT) 25, Alanine Aminotransferase (ALT/SGPT) 14, Total Bilirubin 0.3 Cardiac enzymes negative. Multiple attempts were made to obtain IV access. After speaking with my attending, Dr. Alvarado, he recommended a CT abdomen pelvis without contrast. Last Impressions Chest X-Ray 07/03/17 1044 Signed Impressions: Service Date/Time: Monday, July 03, 2017 11:32 - CONCLUSION: No acute disease. Joseph Frederick MD Abdomen/Pelvis CT 07/03/17 0000 Signed Impressions: Service Date/Time: Monday, July 03, 2017 14:12 - CONCLUSION: 1. Mildly nonspecific, nonobstructive bowel gas pattern which may represent a mild ileus and/or gastroenteritis. 2. Status post cholecystectomy. Duke De León MD After discussing the findings from today, patient was rather insistent upon obtaining imaging to r/o blood clot. I have a low suspicion of a blood clot however, because of her history, will obtain an US. Ultrasound negative for DVT. After further discussion with the patient, I am convinced that patient may have the beginning of a diverticulitis episode. Cipro and Flagyl administered emergency department today. Morphine for pain control. Patient will be discharged with Cipro, Flagyl and tramadol. Advised that she should follow-up with the [facility] clinic. Consider follow-up with a dry color mixer. Advised to return for worsening or persistent symptoms. She states understanding, will comply. Patient is appreciative of the care she received in the emergency department today. Diagnosis Primary Impression: Abdominal pain Qualified Codes: R10.32 - Left lower quadrant pain Referrals: [facility] Additional Instructions: Follow-up with [facility] for your regular care. I recommend you follow a brat diet- Bananas, rice, applesauce, and toast for a few days until your pain resolves. Recommend you take a daily aspirin. Avoid seeds or other foods that may cause your symptoms. Consider follow up with a dry color mixer and shellfish processing machine tender. Scripts Tramadol (Tramadol) 50 Mg Tab 50 MG PO Q8H Y for PAIN for 3 Days, #9 TAB 0 Refills Prov: Adonis Montalvo MD 07/03/17 Ciprofloxacin (Cipro) 500 Mg Tab 500 MG PO BID for Infection for 10 Days, #20 TAB 0 Refills Prov: Adonis Montalvo MD 07/03/17 Metronidazole (Flagyl) 500 Mg Tab 500 MG PO TID for Infection for 10 Days, TAB 0 Refills Prov: Adoins Montalvo MD 07/03/17 Disposition: 01 DISCHARGE HOME Condition: Stable Imani Ortiz Jul 03, 2017 10:56
[2017-07-03 11:22] LABS: BILIRUBIN, URINE NEG (NEG); BLOOD, URINE NEG (NEG); GLUCOSE,URINE NEG (NEG); KETONE, URINE NEG (NEG); NITRITE,URINE NEG (NEG); URINE COLOR YELLOW (YELLW/STRAW); URINE LEUKOCYTE ESTERASE NEG (NEG)
[2017-07-03 11:39] LABS: SQUAMOUS EPITHELIAL CELL URINE 0-3 /hpf (0-5); WBC, URINE 0-2 /hpf (0-5)
[2017-07-03 11:40] LABS: TRANSITIONAL EPI CELLS, URINE OCC /hpf
[2017-07-03 12:05] LABS: CHLORIDE 108 MEQ/L (98-107); SODIUM (NA) 139 MEQ/L (136-145)
--- NOTE | 2017-07-03 12:05 | RADRPT ---
EXAM DATE/TIME: 07/03/2017 11:32 [facility] COMPARISON: CHEST SINGLE AP, May 01, 2016, 11:02. INDICATIONS : Weakness and chest pain. MEDICAL HISTORY : Cardiovascular disease. Hypertension SURGICAL HISTORY : Coronary artery stent. Hysterectomy. Cholecystectomy ENCOUNTER: Initial ACUITY: One week PAIN SCORE: 4/10 LOCATION: Bilateral chest FINDINGS: A single view of the chest demonstrates the lungs to be symmetrically aerated without evidence of mas s, infiltrate or effusion. Corner artery stent. The cardiomediastinal contours are unremarkable. Os seous structures are intact. CONCLUSION: No acute disease. Joseph Frederick MD on July 03, 2017 at 12:03 Board Certified Radiologist. This report was verified electronically.
[2017-07-03 12:09] LABS: BICARBONATE 26.4 MEQ/L (21.0-32.0); CALCIUM 9.1 MG/DL (8.5-10.1); GLUCOSE,RANDOM 90 MG/DL (74-106)
[2017-07-03 12:10] LABS: ALBUMIN 3.5 GM/DL (3.4-5.0); BLOOD UREA NITROGEN 12 MG/DL (7-18)
[2017-07-03 12:12] LABS: ALT (GPT) 14 U/L (10-53); AST (GOT) 25 U/L (15-37); BASOPHIL # 0.3 TH/MM3 (0-0.2); BASOPHIL % 4.3 % (0.0-2.0); EOSINOPHIL # 0.1 TH/MM3 (0-0.4); EOSINOPHIL % 1.4 % (0.0-4.0); HEMATOCRIT 42.6 % (35.0-46.0); HEMOGLOBIN 14.3 GM/DL (11.6-15.3); LYMPH % 23.3 % (9.0-44.0); LYMPHOCYTE # 1.5 TH/MM3 (1.0-4.8); MEAN CELL VOLUME 87.9 FL (80.0-100.0); MEAN CORPUSCULAR HEMOGLOBIN 29.5 PG (27.0-34.0); MEAN CORPUSCULAR HGB CONC 33.5 % (32.0-36.0); MEAN PLATELET VOLUME 8.7 FL (7.0-11.0); MONO % 5.8 % (0.0-8.0); MONOCYTE # 0.4 TH/MM3 (0-0.9); NEUT % 65.2 % (16.0-70.0); PLATELET COUNT 341 TH/MM3 (150-450); RED BLOOD COUNT 4.85 MIL/MM3 (4.00-5.30); RED CELL DISTRIBUTION WIDTH 12.5 % (11.6-17.2); WHITE BLOOD COUNT 6.3 TH/MM3 (4.0-11.0)
[2017-07-03 12:13] LABS: CREATININE 0.51 MG/DL (0.50-1.00); GLOMERULAR FILTRATION RATE 125 ML/MIN (>89)
[2017-07-03 12:14] LABS: TOTAL BILIRUBIN ADULT 0.3 MG/DL (0.2-1.0); TOTAL PROTEIN 7.1 GM/DL (6.4-8.2)
[2017-07-03 12:15] LABS: ALKALINE PHOSPHATASE 85 U/L (45-117)
[2017-07-03 12:17] LABS: TROPONIN I LESS THAN 0.02 NG/ML (0.02-0.05)
[2017-07-03] MEDS ORDERED: ONDANSETRON ODT 4 MG TAB PO ONE (13:00)
[2017-07-03] MEDS ORDERED: MORPHINE SULFATE 2 MG/ML SYRINGE IM ONE ×2 (13:00→14:45)
--- NOTE | 2017-07-03 14:32 | RADRPT ---
EXAM DATE/TIME: 07/03/2017 14:12 [facility] COMPARISON: CT ABDOMEN & PELVIS W/O CONTRAST, May 01, 2016, 9:06. INDICATIONS : Left lower quadrant and inguinal pain. ORAL CONTRAST: No oral contrast ingested. RADIATION DOSE: 7.75 CTDIvol (mGy) MEDICAL HISTORY : Cardiovascular disease. Diverticulitis. SURGICAL HISTORY : Coronary artery stent. Cholecystectomy.Hysterectomy.CABG ENCOUNTER: Initial ACUITY: 3 days PAIN SCALE: 5/10 LOCATION: Left lower quadrant TECHNIQUE: Volumetric scanning of the abdomen and pelvis was performed. Using automated exposure control and ad justment of the mA and/or kV according to patient size, radiation dose was kept as low as reasonably achievable to obtain optimal diagnostic quality images. DICOM format image data is available electro nically for review and comparison. FINDINGS: LOWER LUNGS: The visualized lower lungs are clear. LIVER: Homogeneous density without lesion. There is no dilation of the biliary tree. Status post cholecyste ctomy. SPLEEN: Normal size without lesion. PANCREAS: Within normal limits. KIDNEYS: Normal in size and shape. There is no mass, stone, or hydronephrosis. ADRENAL GLANDS: Within normal limits. VASCULAR: There is no aortic aneurysm. BOWEL/MESENTERY: No oral contrast was given limiting the sensitivity of the exam. There are several loops of nondilate d air-containing small bowel several small air-fluid levels. Gas and stool is noted segmentally in th e colon. There is no free intraperitoneal air or fluid. ABDOMINAL WALL: Within normal limits. RETROPERITONEUM: There is no lymphadenopathy. BLADDER: No wall thickening or mass. REPRODUCTIVE: Within normal limits. INGUINAL: There is no lymphadenopathy or hernia. MUSCULOSKELETAL: Within normal limits for patient age. CONCLUSION: 1. Mildly nonspecific, nonobstructive bowel gas pattern which may represent a mild ileus and/or gastr oenteritis. 2. Status post cholecystectomy. Duke De León MD on July 03, 2017 at 14:26 Board Certified Radiologist. This report was verified electronically.
--- NOTE | 2017-07-03 15:57 | RADRPT ---
EXAM DATE/TIME: 07/03/2017 15:03 [facility] COMPARISON: No previous studies available for comparison. INDICATIONS : Left leg pain. MEDICAL HISTORY : Hypercholesterolemia. Pancreatitis. Renal calculi. TIA. Migraines. Coronary artery disease. Chest pain. Pneumonia. GERD. Tobacco use. SURGICAL HISTORY : Hysterectomy. Cholecystectomy. Cardiac cath. CABG x6. ENCOUNTER: Initial ACUITY: 3 days PAIN SCORE: 9/10 LOCATION: Left leg. TECHNIQUE: Venous ultrasound of the leg was performed from the inguinal ligament to the proximal calf. Real-kari e, color Doppler and spectral tracing, compression and augmentation techniques were used. FINDINGS: There is normal compressibility of the deep venous system from the inguinal region to the proximal ca lf. No echogenic clot is seen in the lumen of the common femoral, femoral, popliteal, and posterior tibial veins. There is a normal response of the venous system to proximal and distal augmentation an d respiration. CONCLUSION: Negative exam with no evidence of deep venous thrombosis. Duke De León MD on July 03, 2017 at 15:54 Board Certified Radiologist. This report was verified electronically.
[2017-07-03] MEDS ORDERED: CIPR-9 PO (16:12)
[2017-07-03] MEDS ORDERED: METR-1 PO (16:12)
[2017-07-03] MEDS ORDERED: TRAM50TA PO (16:13)
[2017-07-03] MEDS ORDERED: CIPROFLOXACIN 500 MG TAB PO ONE (16:15)
[2017-07-03] MEDS ORDERED: metroNIDAZOLE 500 MG TAB PO ONE (16:15)
--- NOTE | 2017-07-03 20:59 | EKG ---
Date Performed: 07/03/2017 Time Performed: 09:11:31 PTAGE: 56 years EKG: Sinus rhythm NORMAL ECG PREVIOUS TRACING : 05/01/2016 15.53 No significant change from previous tracing noted. DOCTOR: Hever Pretty Interpretating Date/Time 07/03/2017 20:57:43
== END 2017-07-03 16:39 | disposition home or self-care (01) ==
LOC: PHED 08:54
DX: R10.32 Left lower quadrant pain (principal); M79.605 Pain in left leg; R53.1 Weakness; R42 Dizziness and giddiness; I25.10 Atherosclerotic heart disease of native coronary artery without angina pectoris; K21.9 Gastro-esophageal reflux disease without esophagitis; F17.210 Nicotine dependence, cigarettes, uncomplicated; Z90.49 Acquired absence of other specified parts of digestive tract; Z87.19 Personal history of other diseases of the digestive system
CPT/HCPCS: 71045; 74176; 80053; 81001; 82550; 83690; 84484; 85025; 85610; 85730; 93005; 93971; 96372; 99285; J2270

== ENCOUNTER 2017-07-09 11:05 | Emergency (ER) | payer SELFPAY ==
[~2017-07-09] VITALS: Ht 170.2 cm; Wt 65.6 kg
[~2017-07-09 11:05] MED LIST changes: +CIPR-9 PO; +METR-1 PO; -PRED10PA2 PO; +TRAM50TA PO; -VENTAER INH
[2017-07-09 11:19] VITALS: BP 124/72; PULSE 77; RESP 16; TEMP 97.7; O2SAT 98
[2017-07-09 11:36] LABS: BILIRUBIN, URINE NEG (NEG); BLOOD, URINE TRACE (NEG); GLUCOSE,URINE NEG (NEG); KETONE, URINE NEG (NEG); NITRITE,URINE NEG (NEG); PH, URINE 5.5 (5.0-8.5); URINE COLOR YELLOW (YELLW/STRAW); URINE LEUKOCYTE ESTERASE NEG (NEG)
[2017-07-09] MEDS ORDERED: SODIUM CHLOR 0.9% 1000 ML INJ 1,000 ML IV SCH (11:40)
[2017-07-09 11:45] LABS: WBC, URINE 0-2 /hpf (0-5)
[2017-07-09] MEDS ORDERED: SODIUM CHLORIDE 0.9% FLUSH 10 ML FLUSH IV FLUSH PRN (11:45)
[2017-07-09] MEDS ORDERED: MORPHINE SULFATE 4 MG/ML INJ IV PUSH ONE ×2 (11:45→13:30)
[2017-07-09] MEDS ORDERED: ONDANSETRON HCL 4 MG/2 ML VIAL IVP ONE (11:45)
[2017-07-09] MEDS ORDERED: KETOROLAC TROMETHAMINE 30 MG/ML (IVP) VIAL IV PUSH ONE (11:45)
[2017-07-09 11:46] LABS: RBC, URINE 0-3 /hpf (0-3); SQUAMOUS EPITHELIAL CELL URINE 0-5 /hpf (0-5)
--- NOTE | 2017-07-09 12:18 | PD ---
HPI Chief Complaint: Abdominal Pain Time Seen by Provider: 11:31 Travel History International Travel<30 days: No Contact w/Intl Traveler<30days: No Traveled to known affect area: No History of Present Illness HPI Patient is a 56-year-old female with history of cardiac stents, diverticulitis, and migraines who returns to the emergency room for reevaluation of her left groin pain. Patient reports that she was seen for similar issues in the emergency room on July 03, 2017, reports that she had lab work and a ct of her abdomen and pelvis and was diagnosed with diverticulitis and was discharged home with a prescription for Flagyl as well as Cipro. Patient reports that she has been taking her antibiotics as prescribed but is not feeling any better. Patient reports that she is continuing to have pain to her left groin, reports that she feels weak and tired. Patient reports that she has been having left- sided groin pain which has been continual for the past week, reports that nothing makes the pain better, walking or stretching her left groin muscle exacerbates the pain. Denies any trauma to her groin. Patient reports no abdominal pain, denies any constipation or diarrhea, reports that she just has no appetite. Denies vaginal discharge/bleeding - reports history of a complete hysterectomy. Patient reports that overall, she just is not feeling well. Patient denies any chest pain or shortness of breath, reports having a mild headache this time. PFSH Past Medical History Hx Anticoagulant Therapy: No Arthritis: No Asthma: No Autoimmune Disease: No Anxiety: No Depression: No Heart Rhythm Problems: No Cancer: No Cardiovascular Problems: Yes (hx of htn, stents x 6) High Cholesterol: Yes Chemotherapy: No Chest Pain: Yes Congestive Heart Failure: No COPD: No Cerebrovascular Accident: Yes (TIA) Coronary Artery Disease: Yes Diabetes: No Diminished Hearing: No Endocrine: No Gastrointestinal Disorders: No GERD: Yes Genitourinary: No Headaches: Yes Hiatal Hernia: No Heparin Induced Thrombocytopen: No Hypertension: No Immune Disorder: No Implanted Vascular Access Dvce: No Kidney Stones: Yes Musculoskeletal: No Neurologic: No Psychiatric: No Reproductive: No Respiratory: No Migraines: Yes Pancreatitis: Yes Pneumonia: Yes Radiation Therapy: No Renal Failure: No Seizures: No Sickle Cell Disease: No Sleep Apnea: No Thyroid Disease: No Ulcer: No Tetanus Vaccination: Unknown ?: Not Past Surgical History AICD: No Arteriovenous Shunt: No Cardiac Surgery: Yes (HEART CATHS 6 CARDIAC STENTS) Cholecystectomy: Yes Coronary Artery Bypass Graft: Yes (6 STENTS) Ear Surgery: No Endocrine Surgery: No Eye Surgery: No Gynecologic Surgery: Yes (HYSTERECTOMY) Hysterectomy: Yes Insulin Pump: No Joint Replacement: No Neurologic Surgery: No Oral Surgery: No Pacemaker: No Thoracic Surgery: No Other Surgery: Yes (HYSTERECTOMY GALLBLADDER ) Social History Alcohol Use: Yes (OCCASIONALLY) Tobacco Use: Yes (2 CIGS PER DAY) Substance Use: No Allergies-Medications (Allergen,Severity, Reaction): Coded Allergies: diltiazem (Unverified Allergy, Severe, Bradycardia, 07/09/17) sumatriptan (Unverified Allergy, Severe, Bradycardia, 07/09/17) isosorbide (Unverified Allergy, Intermediate, Bradycardia, 07/09/17) Reported Meds & Prescriptions Reported Meds & Active Scripts Active Valium (Diazepam) 2 Mg Tab 2 Mg PO BID PRN 5 Days Ibuprofen 600 Mg Tab 600 Mg PO Q6H PRN Cipro (Ciprofloxacin HCl) 500 Mg Tab 500 Mg PO BID 10 Days Flagyl (Metronidazole) 500 Mg Tab 500 Mg PO TID 10 Days Reported Aspirin 81 Mg Chew 81 Mg CHEW DAILY Review of Systems General / Constitutional: No: Fever Eyes: No: Visual changes HENT: Positive: Headaches, Lightheadedness Cardiovascular: No: Chest Pain or Discomfort Respiratory: No: Cough, Shortness of Breath Gastrointestinal: Positive: Diarrhea, No: Nausea, Vomiting, Abdominal Pain, Constipation Genitourinary: No: Dysuria Musculoskeletal: Positive: Pain (Left-sided groin pain) Skin: No Rash Neurologic: Positive: Weakness, Headache, No: Dizziness Psychiatric: No: Depression Endocrine: No: Polydipsia Hematologic/Lymphatic: No: Easy Bruising Physical Exam Narrative GENERAL: Mild distress SKIN: Focused skin assessment warm/dry. HEAD: Atraumatic. Normocephalic. EYES: Pupils equal and round. No scleral icterus. No injection or drainage. ENT: No nasal bleeding or discharge. Mucous membranes pink and moist. NECK: Trachea midline. No JVD. CARDIOVASCULAR: Regular rate and rhythm. No murmur appreciated. RESPIRATORY: No accessory muscle use. Clear to auscultation. Breath sounds equal bilaterally. GASTROINTESTINAL: Abdomen soft, non-tender, nondistended. Hepatic and splenic margins not palpable. MUSCULOSKELETAL: No obvious deformities. No clubbing. No cyanosis. No edema. Patient with point tenderness to left groin, there is no obvious hernia, there is no obvious inflamed lymph nodes, no obvious erythema or edema. NEUROLOGICAL: Awake and alert. No obvious cranial nerve deficits. Motor grossly within normal limits. Normal speech. PSYCHIATRIC: Appropriate mood and affect; insight and judgment normal. Data Data Last Documented VS Vital Signs Date Time Temp Pulse Resp B/P (MAP) Pulse Ox O2 Delivery O2 Flow Rate FiO2 07/09/17 15:05 98 Room Air 07/09/17 11:19 97.7 77 16 124/72 (89) Orders Orders Urinalysis - C+S If Indicated (07/09/17 11:19) Complete Blood Count With Diff (07/09/17 11:40) Comprehensive Metabolic Panel (07/09/17 11:40) Lipase (07/09/17 11:40) Iv Access Insert/Monitor (07/09/17 11:40) Ecg Monitoring (07/09/17 11:40) Oximetry (07/09/17 11:40) Morphine Inj (Morphine Inj) (07/09/17 11:45) Ondansetron Inj (Zofran Inj) (07/09/17 11:45) Sodium Chlor 0.9% 1000 Ml Inj (Ns 1000 M (07/09/17 11:40) Sodium Chloride 0.9% Flush (Ns Flush) (07/09/17 11:45) Electrocardiogram (07/09/17 ) Ketorolac Inj (Toradol Inj) (07/09/17 11:45) Hip, Uni(Ap&Lat) Wo Ap Pelvis (07/09/17 ) Cta Thor Abd Aorta W Iv C W3d (07/09/17 13:20) Morphine Inj (Morphine Inj) (07/09/17 13:30) Iohexol 350 Inj (Omnipaque 350 Inj) (07/09/17 14:06) Labs Laboratory Tests Test 07/09/17 11:33 07/09/17 12:20 Urine Collection Type CLEAN CATCH Urine Color YELLOW Urine Turbidity CLEAR Urine pH 5.5 Urine Specific [place] GREATER/EQUAL 1.030 Urine Protein NEG mg/dL Urine Glucose (UA) NEG mg/dL Urine Ketones NEG mg/dL Urine Occult Blood TRACE Urine Nitrite NEG Urine Bilirubin NEG Urine Urobilinogen 0.2 MG/DL Urine Leukocyte Esterase NEG Urine RBC 0-3 /hpf Urine WBC 0-2 /hpf Urine Squamous Epithelial Cells 0-5 /hpf Microscopic Urinalysis Comment CULT NOT INDICATED Urine Collection Time 11:33 White Blood Count 6.8 TH/MM3 Red Blood Count 4.74 MIL/MM3 Hemoglobin 13.9 GM/DL Hematocrit 41.6 % Mean Corpuscular Volume 87.7 FL Mean Corpuscular Hemoglobin 29.2 PG Mean Corpuscular Hemoglobin Concent 33.3 % Red Cell Distribution Width 12.4 % Platelet Count 318 TH/MM3 Mean Platelet Volume 8.2 FL Neutrophils (%) (Auto) 59.8 % Lymphocytes (%) (Auto) 29.0 % Monocytes (%) (Auto) 8.4 % Eosinophils (%) (Auto) 1.4 % Basophils (%) (Auto) 1.4 % Neutrophils # (Auto) 4.0 TH/MM3 Lymphocytes # (Auto) 2.0 TH/MM3 Monocytes # (Auto) 0.6 TH/MM3 Eosinophils # (Auto) 0.1 TH/MM3 Basophils # (Auto) 0.1 TH/MM3 CBC Comment DIFF FINAL Differential Comment Blood Urea Nitrogen 10 MG/DL Creatinine 0.68 MG/DL Random Glucose 100 MG/DL Total Protein 6.9 GM/DL Albumin 3.4 GM/DL Calcium Level 9.2 MG/DL Alkaline Phosphatase 78 U/L Aspartate Amino Transf (AST/SGOT) 17 U/L Alanine Aminotransferase (ALT/SGPT) 19 U/L Total Bilirubin 0.3 MG/DL Sodium Level 141 MEQ/L Potassium Level 3.7 MEQ/L Chloride Level 107 MEQ/L Carbon Dioxide Level 26.1 MEQ/L Anion Gap 8 MEQ/L Estimat Glomerular Filtration Rate 90 ML/MIN Lipase 90 U/L [facility] Medical Decision Making Medical Screen Exam Complete: Yes Emergency Medical Condition: Yes Medical Record Reviewed: Yes Interpretation(s) EKG at 1227: Sinus norbert at 51bpm, qt/qtc: 423/399, no acute changes Vital Signs Date Time Temp Pulse Resp B/P (MAP) Pulse Ox O2 Delivery O2 Flow Rate FiO2 07/09/17 11:19 97.7 77 16 124/72 (89) 98 Differential Diagnosis Muscle strain, diverticulitis, electrolyte abnormality, arrhythmia, ACS Narrative Course Patient is a 56-year-old female who returns to the emergency room for evaluation of left-sided groin strain. Patient was seen on July 03, 2017 with similar complaints, at that time, she had a CT of her abdomen pelvis which showed nonspecific, nonobstructive bowel gas pattern which may represent a mild ileus and/or gastroenteritis. Patient also had an ultrasound of her left lower extremity which is negative for DVT, she was discharged home with treatment for diverticulitis on Cipro as well as Flagyl, patient reports that symptoms have not improved. Patient here for reevaluation of her symptoms. During the course of the patients emergency department visit, the patients history, examination, and differential diagnosis were reviewed with the patient. The patient was placed on a case monitor with oximetry and frequent blood pressure monitoring. The patient had an IV access obtained and blood work sent for analysis. The patient was initially provided IV Toradol as well as IV morphine for pain. The patients laboratory studies were reviewed and remarkable for CBC & BMP Diagram 07/09/17 12:20 Total Protein 6.9, Albumin 3.4, Calcium Level 9.2, Alkaline Phosphatase 78, Aspartate Amino Transf (AST/SGOT) 17, Alanine Aminotransferase (ALT/SGPT) 19, Total Bilirubin 0.3 Radiology studies were reviewed and remarkable for Last Impressions Hip X-Ray 07/09/17 0000 Signed Impressions: Service Date/Time: Sunday, July 09, 2017 12:58 - CONCLUSION: Unremarkable examination of the left hip. Haile Gorman MD Patient reevaluated, patient reports that she is not feeling any better. Patient reports that she now has pain going from her abdomen to her back radiating down her leg. Reports that this is different pain from what she has ever experienced, patient requesting more pain medications. Discussed with patient need for CTA to rule out dissection. Patient agreeable to further imaging - understands that she just had a ct of her abdomen and pelvis and alf effects of ct imaging including cancer is a risk - patient assumes this risk at this time Last Impressions Hip X-Ray 07/09/17 0000 Signed Impressions: Service Date/Time: Sunday, July 09, 2017 12:58 - CONCLUSION: Unremarkable examination of the left hip. Haile Gorman MD CTA; aorta is intact, small stone in the urinary bladder, colonic diverticula Patient reevaluated, and reviewed all labs and all studies as well as all findings along with incidental findings with patient in detail. Patient did have extensive workup here today, patient with most likely passed kidney stone as she does have a 2 mm stone within her bladder versus groin strain. Discussed with her need to follow-up with her primary care doctor, will prescribe muscle relaxers and NSAIDs for her groin pain. Signs and symptoms of when to return to the ER was reviewed with patient in detail. Procedures Procedure Narrative IV control panel tester unable to obtain IV, a 20-gauge IV access was placed to patient's left AC using ultrasound guidance. Patient tolerated procedure well. Diagnosis Primary Impression: Strain of groin Qualified Codes: S76.212A - Strain of adductor muscle, fascia and tendon of left thigh, initial encounter Referrals: [facility] Patient Instructions: Narcotic given in the ED, General Instructions Additional Instructions: Please provide patient with a copy of their lab work and studies at discharge* * Please follow up with your primary care doctor in 2-3 days Return to the ER if symptoms worsen or progress Return to the ER as needed Do not drive or operate heavy machinery while taking muscle relaxers (valium) Med/Other Pt SpecificInfo: Prescription(s) given Scripts Diazepam (Valium) 2 Mg Tab 2 MG PO BID Y for SPASM for 5 Days, #10 TAB 0 Refills Prov: Loida Avelar DO 07/09/17 Ibuprofen (Ibuprofen) 600 Mg Tab 600 MG PO Q6H Y for Pain/Inflammation, #40 TAB 0 Refills Prov: Loida Avelar DO 07/09/17 Disposition: 01 DISCHARGE HOME Condition: Stable Loida Avelar DO Jul 09, 2017 12:18
[2017-07-09 12:27] LABS: BASOPHIL # 0.1 TH/MM3 (0-0.2); BASOPHIL % 1.4 % (0.0-2.0); EOSINOPHIL # 0.1 TH/MM3 (0-0.4); EOSINOPHIL % 1.4 % (0.0-4.0); HEMATOCRIT 41.6 % (35.0-46.0); HEMOGLOBIN 13.9 GM/DL (11.6-15.3); MEAN CELL VOLUME 87.7 FL (80.0-100.0); MEAN CORPUSCULAR HEMOGLOBIN 29.2 PG (27.0-34.0); MEAN CORPUSCULAR HGB CONC 33.3 % (32.0-36.0); MEAN PLATELET VOLUME 8.2 FL (7.0-11.0); MONO % 8.4 % (0.0-8.0); MONOCYTE # 0.6 TH/MM3 (0-0.9); NEUT % 59.8 % (16.0-70.0); PLATELET COUNT 318 TH/MM3 (150-450); RED BLOOD COUNT 4.74 MIL/MM3 (4.00-5.30); RED CELL DISTRIBUTION WIDTH 12.4 % (11.6-17.2); WHITE BLOOD COUNT 6.8 TH/MM3 (4.0-11.0)
[2017-07-09 12:39] LABS: CHLORIDE 107 MEQ/L (98-107); SODIUM (NA) 141 MEQ/L (136-145)
[2017-07-09 12:42] LABS: CALCIUM 9.2 MG/DL (8.5-10.1)
[2017-07-09 12:43] LABS: ALBUMIN 3.4 GM/DL (3.4-5.0); BICARBONATE 26.1 MEQ/L (21.0-32.0); BLOOD UREA NITROGEN 10 MG/DL (7-18); GLUCOSE,RANDOM 100 MG/DL (74-106)
[2017-07-09 12:46] LABS: ALT (GPT) 19 U/L (10-53); AST (GOT) 17 U/L (15-37); CREATININE 0.68 MG/DL (0.50-1.00); GLOMERULAR FILTRATION RATE 90 ML/MIN (>89)
[2017-07-09 12:47] LABS: TOTAL BILIRUBIN ADULT 0.3 MG/DL (0.2-1.0)
[2017-07-09 12:48] LABS: TOTAL PROTEIN 6.9 GM/DL (6.4-8.2)
[2017-07-09 12:49] LABS: ALKALINE PHOSPHATASE 78 U/L (45-117)
--- NOTE | 2017-07-09 13:14 | RADRPT ---
EXAM DATE/TIME: 07/09/2017 12:58 [facility] COMPARISON: CT ABDOMEN & PELVIS W/O CONTRAST, July 03, 2017, 14:12. INDICATIONS : Left groin pain for 1 week, no known injury MEDICAL HISTORY : None. SURGICAL HISTORY : None. ENCOUNTER: Initial ACUITY: 1 week PAIN SCORE: 9/10 LOCATION: Left groin area FINDINGS: A two view examination of the left hip was performed. The primary and secondary trabecular pattern o f the femoral neck is intact. The hip joint is of normal width without significant sclerosis or bony hypertrophy. The acetabulum is grossly intact. CONCLUSION: Unremarkable examination of the left hip. Haile Gorman MD on July 09, 2017 at 13:11 Board Certified Radiologist. This report was verified electronically.
[2017-07-09] MEDS ORDERED: IOHEXOL 350 MG/ML 10 ML VIAL (for RAD DIAG) IVCONTRAST ONE (14:06)
--- NOTE | 2017-07-09 15:04 | RADRPT ---
EXAM DATE/TIME: 07/09/2017 13:46 [facility] COMPARISON: No previous studies available for comparison. INDICATIONS : Abdominal pain radiating to back and down left leg. Recently seen for left inguinal pain with no impr ovement while taking antibiotics. IV CONTRAST: 95 cc Omnipaque 350 (iohexol) IV RADIATION DOSE: 13.61 CTDIvol (mGy) MEDICAL HISTORY : Cardiovascular disease. Pancreatitis. Gastroesophageal reflux disease.Hypertension. SURGICAL HISTORY : Coronary artery stent. Cholecystectomy.Hysterectomy. ENCOUNTER: [facility] ACUITY: 4 - 6 days PAIN SCALE: 9/10 LOCATION: pelvis abdomen TECHNIQUE: Volumetric scanning was performed using a multi-row detector CT scanner. The data was post processed with a variety of visualization algorithms including full volume maximum intensity projection, multi -planar sliding thin slab reformation, curved planar reformation, and surface rendering techniques. Using automated exposure control and adjustment of the mA and/or kV according to patient size, radiat ion dose was kept as low as reasonably achievable to obtain optimal diagnostic quality images. DICOM format image data is available electronically for review and comparison. FINDINGS: LUNGS: There is no consolidation or pneumothorax. No concerning pulmonary nodule is visualized. No pleural fluid is present. MEDIASTINUM: No abnormally enlarged lymph nodes by CT criteria. No axillary or hilar abnormalities are identified. ABDOMEN: The liver and spleen are free of focal defects. The gallbladder and pancreas demonstrate no abnormali ty. The adrenal glands are normal. The kidneys demonstrate no evidence of solid renal mass or hydrone phrosis. No free fluid or abdominal masses are identified. No para-aortic adenopathy is seen. Colonic diverticula are seen. The patient is status post cholecystectomy. PELVIS: No evidence of free fluid or pelvic mass. No abnormally enlarged inguinal or retroperitoneal lymph no susie are present. There is a small 2 mm stone within the urinary bladder. THORACIC AORTA: The thoracic aortic root is normal with normal branching of the great vessels. There is no evidence of aneurysm or dissection. ABDOMINAL AORTA: The aorta is normal in caliber without aneurysm or dissection. The renal arteries are patent bilater ally. The proximal celiac and superior mesenteric arteries are patent and normal in diameter. PELVIC VESSELS: The internal iliac and external iliac vessels are patent without aneurysm or stenosis. CONCLUSION: 1. The aorta is intact. 2. Small stone in the urinary bladder. 3. Colonic diverticula. Jersey Cooper MD on July 09, 2017 at 14:58 Board Certified Radiologist. This report was verified electronically.
[2017-07-09 15:05] VITALS: O2SAT 98
[2017-07-09] MEDS ORDERED: DIAZ2 PO (15:13)
[2017-07-09] MEDS ORDERED: IBUP-232 PO (15:13)
[2017-07-09 15:18] VITALS: BP 114/50
--- NOTE | 2017-07-10 21:28 | EKG ---
Date Performed: 07/09/2017 Time Performed: 12:27:26 PTAGE: 56 years EKG: SINUS BRADYCARDIA NONSPECIFIC T-WAVE ABNORMALITY BORDERLINE ECG PREVIOUS TRACING : 07/03/2017 09.11 Compared to previous tracing, sinus bradycardia is new DOCTOR: Gallo Gomez Interpretating Date/Time 07/10/2017 21:27:54
== END 2017-07-09 15:46 | disposition home or self-care (01) ==
LOC: PHED 11:05
DX: S76.212A Strain of adductor muscle, fascia and tendon of left thigh, initial encounter (principal); R00.1 Bradycardia, unspecified; R94.31 Abnormal electrocardiogram [ECG] [EKG]; N21.0 Calculus in bladder; R19.7 Diarrhea, unspecified; R53.1 Weakness; I10 Essential (primary) hypertension; Z87.19 Personal history of other diseases of the digestive system; X58.XXXA Exposure to other specified factors, initial encounter
CPT/HCPCS: 71275; 73502; 74174; 80053; 81001; 83690; 85025; 93005; 96361; 96374; 96375; 96376; 99285; J1885; J2270; J2405; J7030; Q9967

== ENCOUNTER 2017-12-27 11:32 | Observation (INO) ==
--- NOTE | 2017-12-27 13:16 | XR ---
EXAM DATE: 12/27/2017 12:26 PM EDT AGE/SEX: 57 years / Female INDICATIONS: . Shortness of breath, cough, and chest pain. CLINICAL DATA: This is the patient's initial encounter. Patient reports that signs and symptoms have been present for 3 days and indicates a pain score of 5/10. MEDICAL/SURGICAL HISTORY: . Cardiovascular disease. Hypertension. . Coronary artery stent. Hys terectomy. Cholecystectomy COMPARISON: [facility], CHEST SINGLE AP, 07/03/2017. . FINDINGS: PA and lateral views of the chest demonstrate the lungs to be symmetrically aerated without evidence of mass, infiltrate or effusion. The cardiomediastinal contours are unremarkable. LAD stent is noted. Osseous structures are intact. CONCLUSION: Negative for an acute process, history of cardiac disease with stent placement Electronically signed by: Jomar Ribeiro MD 12/27/2017 1:15 PM EDT
[2017-12-27 13:17] LABS: Baso # (Auto) 0.2 th/mm3 (0.0-0.2); Baso % (Auto) 3.6 % (0.0-2.0); Eos % (Auto) 0.6 % (0.0-4.0); Hematocrit 42.6 % (35.0-46.0); Hemoglobin 14.4 gm/dL (11.6-15.3); Lymph # (Auto) 1.8 th/mm3 (1.0-4.8); Lymph % (Auto) 31.3 % (9.0-44.0); Mean Corpuscular HGB Conc 33.8 % (32.0-36.0); Mean Corpuscular Hemoglobin 29.7 pg (27.0-34.0); Mean Corpuscular Volume 87.7 fL (80.0-100.0); Mean Platelet Volume 8.7 fL (7.0-11.0); Mono # (Auto) 0.4 th/mm3 (0.0-0.9); Mono % (Auto) 7.6 % (0.0-8.0); Neut # (Auto) 3.2 th/mm3 (1.8-7.7); Neut % (Auto) 56.9 % (16.0-70.0); Platelet Count 297 th/mm3 (150-450); Red Blood Count 4.86 mil/mm3 (4.00-5.30); Red Cell Distribution Width 12.7 % (11.6-17.2); White Blood Count 5.6 th/mm3 (4.0-11.0)
[2017-12-27] MEDS ORDERED: Morphine Inj 4 MG/ML Vial IV.PUSH ONE (13:18)
[2017-12-27 13:34] LABS: Chloride 107 meq/L (98-107); Sodium 141 meq/L (136-145)
[2017-12-27 13:40] LABS: Albumin 3.8 g/dL (3.4-5.0); Calcium 8.9 mg/dL (8.5-10.1)
[2017-12-27 13:41] LABS: Anion Gap 8 meq/L (5-15); Blood Urea Nitrogen 7 mg/dL (7-18); Glucose,Random 86 mg/dL (74-106)
[2017-12-27 13:43] LABS: Alanine Aminotransferase 19 U/L (10-53); Aspartate Aminotransferase 22 U/L (15-37)
[2017-12-27 13:44] LABS: Glomerular Filtration Rate Greater Than 89 mL/min (>89)
[2017-12-27 13:45] LABS: Total Protein 7.2 g/dL (6.4-8.2)
[2017-12-27 13:46] LABS: Alkaline Phosphatase 89 U/L (45-117)
[2017-12-27 13:48] LABS: Creatine Kinase 79 U/L (26-192); Potassium 3.5 meq/L (3.5-5.1)
--- NOTE | 2017-12-27 14:09 | ED ---
HPI General Chief complaint: Respiratory Symptoms Stated complaint: SOB/chest pain/headache x 1 week Time Seen by Provider: 12/27/17 12:18 Source: patient Mode of arrival: ambulatory Limitations: no limitations History of Present Illness HPI narrative: Patient is a 57-year-old female who comes in complaining of chest pain. She says she has had a cough and sinus pressure for the past month , but the chest pain started in the past couple of days. She says it is substernal and is been coming and going. She says the last time she had symptoms like this, she ended up getting another cardiac stent. She says she came in today because she started to have some shortness of breath. She also reports feeling increasingly tired. She says she had a fever of 102 on Monday , but nothing since then. She has tried [id number] medications to help with her symptoms which have not helped. Severity is mild to moderate. She also reports that she has a sore to her right thigh that has been there for about a week. She says it started as a boil and then drained. She has been trying to care for it at home with peroxide. Related Data Home Medications Medication Instructions Recorded Confirmed Motrin IB PRN MDD 400 mg 12/27/17 Prilosec OTC 12/27/17 Allergies Allergy/AdvReac Type Severity Reaction Status Date / Time diltiazem Allergy Severe Bradycardia Unverified 12/27/17 12:00 sumatriptan Allergy Severe Bradycardia Unverified 12/27/17 12:00 isosorbide Allergy Intermediate Bradycardia Unverified 12/27/17 12:00 Review of Systems ROS: all other systems reviewed are negative Constitutional Reports fatigue Eyes Denies blurry vision ENT Denies dizziness Cardiovascular Reports chest pain and Reports dyspnea Respiratory Reports cough Gastrointestinal Reports nausea and Denies vomiting Musculoskeletal Denies myalgias and Denies arthralgias Integumentary/Breasts Reports sores and Denies wounds Neurologic Denies focal weakness and Denies numbness [facility] Medical History Medical History Atypical migraine (Acute) Bronchitis (Acute) Diverticulitis (Acute) Hx of hysterectomy (Acute) Pancreatitis (Acute) Surgical History Surgical History Hx of cholecystectomy (Acute) Hx of heart artery stent (Acute) Social History Social History Substance History: No History of Abuse Second Hand Smoke Exposure: Yes Smoking Status: Light tobacco smoker Tobacco Type: Cigarettes How Often Do You Have a Drink Containing Alcohol: Monthly or less Recent Travel in [facility] within the Last 8 Weeks: No Recent Out of Country Travel within the Last 8 Weeks: No Immunization History Tetanus Immunization: >5 Years Exam Narrative Exam Narrative: GENERAL: Awake and alert, no acute distress. SKIN: 1 cm circular wound to the right inner thigh, necrotic in appearance. There is mild surrounding erythema. There is no fluctuance. HEAD: Atraumatic. Normocephalic. EYES: Pupils equal and round. No scleral icterus. ENT: Mucous membranes pink and moist. NECK: Trachea midline. No JVD. CARDIOVASCULAR: Regular rate and rhythm. No murmur appreciated. RESPIRATORY: No accessory muscle use. Clear to auscultation. Breath sounds equal bilaterally. GASTROINTESTINAL: Abdomen soft, non-tender, nondistended. MUSCULOSKELETAL: No obvious deformities. No clubbing. No cyanosis. No edema. NEUROLOGICAL: Awake and alert. No obvious cranial nerve deficits. Motor grossly within normal limits. Normal speech. PSYCHIATRIC: Appropriate mood and affect; insight and judgment normal. Course Initial Documented Vital Signs Temperature 98.6 F 12/27/17 11:55 Pulse Rate 85 12/27/17 11:55 Respiratory Rate 18 12/27/17 11:55 Blood Pressure 162/91 H 12/27/17 11:55 Pulse Oximetry 97 12/27/17 11:55 Last Documented Vital Signs Temperature 98.6 F 12/27/17 11:55 Pulse Rate 89 12/27/17 14:12 Respiratory Rate 16 12/27/17 14:11 Blood Pressure 146/61 H 12/27/17 14:12 Pulse Oximetry 97 12/27/17 14:12 Medical Decision Making MDM Narrative Medical decision making narrative: Patient is a 57-year-old who comes in complaining of chest pain with cough and shortness of breath. Exam shows no acute abnormalities, other than a small infected lesion to her right inner thigh. IV established, labs sent. Patient connected to the youth nutritional monitor. Labs show no acute abnormalities. Patient given aspirin. Chest x-ray shows no evidence of pneumonia. Patient given a dose of antibiotics for the wound on her leg. Concern is for ACS based on patient's history of multiple cardiac stents. She be placed in chest pain center for further management. Medical Screen Exam Complete: Yes Emergency Medical Condition: Yes Differential Diagnosis Differential Diagnosis: ACS versus NSTEMI versus STEMI versus cellulitis versus abscess Medical Records Medical records reviewed: Yes I reviewed the patient's medical records. Lab Data Lab results reviewed: Yes I reviewed the patient's lab results. Result diagrams: 12/27/17 12:58 12/27/17 12:58 Lab Results 12/27/17 12/27/17 12/27/17 Range/Units 12:58 12:58 12:58 CBC w Diff Auto diff final WBC 5.6 (4.0-11.0) th/mm3 RBC 4.86 (4.00-5.30) mil/mm3 Hgb 14.4 (11.6-15.3) gm/dL Hct 42.6 (35.0-46.0) % MCV 87.7 (80.0-100.0) fL MCH 29.7 (27.0-34.0) pg MCHC 33.8 (32.0-36.0) % RDW 12.7 (11.6-17.2) % Plt Count 297 (150-450) th/mm3 MPV 8.7 (7.0-11.0) fL Neut % (Auto) 56.9 (16.0-70.0) % Lymph % (Auto) 31.3 (9.0-44.0) % [place] % (Auto) 7.6 (0.0-8.0) % Eos % (Auto) 0.6 (0.0-4.0) % Baso % (Auto) 3.6 H (0.0-2.0) % Neut # (Auto) 3.2 (1.8-7.7) th/mm3 Lymph # (Auto) 1.8 (1.0-4.8) th/mm3 [place] # (Auto) 0.4 (0.0-0.9) th/mm3 Eos # (Auto) 0.0 (0.0-0.4) th/mm3 Baso # (Auto) 0.2 (0.0-0.2) th/mm3 WBC Differential . Differential Comment . Sodium 141 (136-145) meq/L Potassium 3.5 (3.5-5.1) meq/L Chloride 107 (98-107) meq/L Carbon Dioxide 26.0 (21.0-32.0) meq/L Anion Gap 8 (5-15) meq/L BUN 7 (7-18) mg/dL Creatinine 0.61 (0.50-1.00) mg/dL Estimated GFR Greater than 89 (>89) mL/min Random Glucose 86 (74-106) mg/dL Calcium 8.9 (8.5-10.1) mg/dL Total Bilirubin 0.4 (0.2-1.0) mg/dL AST 22 (15-37) U/L ALT 19 (10-53) U/L Alkaline Phosphatase 89 (45-117) U/L Total Creatine Kinase 79 (26-192) U/L Troponin I Less than 0.02 L (0.02-0.05) ng/mL B-Natriuretic Peptide 54 (0-100) pg/mL Total Protein 7.2 (6.4-8.2) g/dL Albumin 3.8 (3.4-5.0) g/dL Imaging Data Radiologist's impression: Chest X-Ray 12/27/17 12:26 CONCLUSION: Negative for an acute process, history of cardiac disease with stent placement ECG Data EKG Prior to Arrival: No Attestation: I personally reviewed and interpreted this ECG as follows: Interpretation: ECG shows normal sinus rhythm at a rate, no ST elevation or depression, normal intervals Discharge Plan Discharge Disposition Patient Disposition: 30 Still Patient Discharge Condition Condition: Stable Discharge Details Diagnosis: Chest pain, Cellulitis Physicians Team ED Provider: Venita Shaffer Primary Care Provider: Primary Care Nikki Coto Rxs /Orders / Referrals /Forms Prescriptions: No Action Prilosec OTC RF: 0 Motrin IB 200 mg MDD 400 mg PRN (Reason: Pain) RF: 0 Status ED Status: With Doctor
[2017-12-27 14:26] LABS: Activated Partial Thrombo Time 23.3 sec (24.3-30.1); Prothrombin Time 9.7 sec (9.8-11.6)
[2017-12-27] MEDS ORDERED: Acetaminophen 500 MG Tablet PO PRN (14:47)
--- NOTE | 2017-12-27 15:35 | P.HP ---
History of Present Illness Primary Care Physician: No Primary Care Physician Chief Complaint: Chest pain and skin infection History of Present Illness: This is a pleasant 57-year-old female patient with a known medical history of GERD, CAD with previous cardiac stent placement who presented to the ED with complaints of chest pain. Patient states that over the past month she has had this dry cough and upper respiratory infection as well as sinus infection. She states that over the past couple days she has been feeling increasingly weak and developed a midsternal chest pain that was characterized as pressure like and tight in nature with an 8 out of 10 at its worst on pain scale. Patient denies any radiation of the pain. She denies any shortness of breath, nausea or vomiting with the pain. She denies any known aggravating or alleviating factors. She states that she had reportedly a fever of 102 on Monday at home but since then she has been afebrile. She has been attempted to take over-the- counter medications including Mucinex and Robitussin for her cough and upper respiratory infection without any relief of her symptoms. She also states that she has had a sore to her right thigh for about a week, she states it started as a boil and then it has been draining since. She attempted peroxide and keeping it clean although the wound has not improved at all. She does not follow with a primary care physician or a turret punch operator. Her last stress test was roughly 2 years ago which was reportedly negative. She has history of CAD with cardiac stent placement x6. Her last stents were in May 2015. She does not have insurance and therefore she has not been following with any doctors. She does not take any medications except for [id number] Prilosec or Motrin. Her family history is significant for cardiovascular disease on both sides of her mother and father. He does admit to smoking cigarettes daily. At the time of assessment patient's pain is continued rated an 8 out of 10 at its worst on pain scale. No reproducible chest discomfort to palpation. Right thigh wound assessed. See physical exam. - Diagnosis (1) Chest pain (2) Cellulitis Review of Systems All other systems reviewed negative except as stated in HPI PMFSH - History History Provided By: Patient - Medical History Medical History: Medical History (Last Reviewed 12/27/17 @ 16:03 by Venita Albarado) Atypical migraine Bronchitis Diverticulitis Hx of hysterectomy Pancreatitis - Surgical History Surgical History: Surgical History (Last Reviewed 12/27/17 @ 16:03 by Venita Albarado) Hx of cholecystectomy Hx of heart artery stent - Family History Family History: Family History (Last Updated 12/27/17 @ 16:03 by Venita Albarado) Mother Cardiovascular disease Father Cardiovascular disease - Social History I have reviewed the patient's Social History: Yes - Tobacco History Second Hand Smoke Exposure: Yes Tobacco Use In Past 30 Days: Yes Smoking Status: Light tobacco smoker Tobacco Type: Cigarettes - Alcohol History How Often Do You Have a Drink Containing Alcohol: Monthly or less - Substance Use History Substance History: No History of Abuse - Travel History Recent Travel in the [place] Within the Last 8 Weeks: No Recent Travel Out of the Country Within the Last 8 Weeks: No - Immunization History Tetanus Immunization: >5 Years Medications and Allergies Active Medications: Active Medications Acetaminophen (Tylenol) 500 mg PO Q4H PRN PRN Reason: HEADACHE Sodium Chloride (Ns Flush) 2 ml IV.FLUSH UNSCH PRN PRN Reason: FLUSH AFTER USING IV ACCESS Sodium Chloride (Ns Flush) 2 ml IV.FLUSH BID [place] Sodium Chloride (Ns Flush) 2 ml IV.FLUSH PRN PRN PRN Reason: FLUSH AFTER USING IV ACCESS Allergies Allergy/AdvReac Type Severity Reaction Status Date / Time diltiazem Allergy Severe Bradycardia Unverified 12/27/17 12:00 sumatriptan Allergy Severe Bradycardia Unverified 12/27/17 12:00 isosorbide Allergy Intermediate Bradycardia Unverified 12/27/17 12:00 Home Medications Medication Instructions Recorded Confirmed Type Motrin IB PRN MDD 400 mg 12/27/17 History Prilosec OTC 12/27/17 History Exam Vital signs: Vital Signs 12/27/17 11:55 12/27/17 13:00 12/27/17 13:28 Temperature 98.6 F Pulse Rate 85 82 70 Respiratory Rate 18 14 18 Blood Pressure 162/91 H 162/91 H 149/77 H Pulse Oximetry 97 97 97 12/27/17 14:11 12/27/17 14:12 12/27/17 14:57 Temperature Pulse Rate 55 L Respiratory Rate 16 Blood Pressure 146/61 H Pulse Oximetry 97 96 12/27/17 15:14 Temperature Pulse Rate 63 Respiratory Rate 18 Blood Pressure 146/77 H Pulse Oximetry 95 Intake & Output 12/26/17 12/27/17 12/27/17 18:59 06:59 18:59 Weight 67.7 kg Narrative: GENERAL: Well-developed, well-nourished patient in [facility]. SKIN: Warm and dry. No rash. Right thigh cellulitis with wound, round open area with serosanguineous drainage, roughly 0.5 x 0.5 cm with surrounding erythema. HEAD: Normocephalic. Atraumatic. EYES: Pupils equal and round. No scleral icterus. No injection or drainage. ENT: No nasal bleeding or discharge. Mucous membranes pink and moist. NECK: Supple. Trachea midline. CARDIOVASCULAR: Regular rate and rhythm. S1, S2 noted. No murmur appreciated. RESPIRATORY: No accessory muscle use. Clear to auscultation. Breath sounds equal bilaterally. GASTROINTESTINAL: Abdomen soft, non-tender, nondistended. Normoactive bowel sounds x4. MUSCULOSKELETAL: No obvious deformities. Extremities without clubbing, cyanosis , or edema. NEUROLOGICAL: Awake and alert. No obvious cranial nerve deficits. Motor grossly within normal limits. 5/5 muscle strength in bilateral upper and lower extremities. Normal speech. PSYCHIATRIC: Appropriate mood and affect; insight and judgment normal. Results - Labs CBC & Chem 7: 12/27/17 12:58 12/27/17 12:58 Labs: Laboratory Results - last 24 hr 12/27/17 12/27/17 12/27/17 12:58 12:58 12:58 CBC w Diff Auto diff final WBC 5.6 RBC 4.86 Hgb 14.4 Hct 42.6 MCV 87.7 MCH 29.7 MCHC 33.8 RDW 12.7 Plt Count 297 MPV 8.7 Neut % (Auto) 56.9 Lymph % (Auto) 31.3 Door % (Auto) 7.6 Eos % (Auto) 0.6 Baso % (Auto) 3.6 H Neut # (Auto) 3.2 Lymph # (Auto) 1.8 Door # (Auto) 0.4 Eos # (Auto) 0.0 Baso # (Auto) 0.2 WBC Differential . Differential Comment . PT 9.7 L INR 1.0 APTT 23.3 L Sodium 141 Potassium 3.5 Chloride 107 Carbon Dioxide 26.0 Anion Gap 8 BUN 7 Creatinine 0.61 Estimated GFR Greater than 89 Random Glucose 86 Calcium 8.9 Total Bilirubin 0.4 AST 22 ALT 19 Alkaline Phosphatase 89 Total Creatine Kinase 79 Troponin I Less than 0.02 L B-Natriuretic Peptide Total Protein 7.2 Albumin 3.8 12/27/17 12:58 CBC w Diff WBC RBC Hgb Hct MCV MCH MCHC RDW Plt Count MPV Neut % (Auto) Lymph % (Auto) Door % (Auto) Eos % (Auto) Baso % (Auto) Neut # (Auto) Lymph # (Auto) Door # (Auto) Eos # (Auto) Baso # (Auto) WBC Differential Differential Comment PT INR APTT Sodium Potassium Chloride Carbon Dioxide Anion Gap BUN Creatinine Estimated GFR Random Glucose Calcium Total Bilirubin AST ALT Alkaline Phosphatase Total Creatine Kinase Troponin I B-Natriuretic Peptide 54 Total Protein Albumin - Imaging Impressions Chest X-Ray 12/27/17 12:26 CONCLUSION: Negative for an acute process, history of cardiac disease with stent placement Caprini VTE Risk Assessment Caprini VTE Risk Assessment: No/Low Risk (score <= 1) Caprini Risk Assessment Model: Point Value = 1 Point Value = 2 Point Value = 3 Point Value = 5 Age 41-60 Minor surgery BMI > 25 kg/m2 Swollen legs Varicose veins or History of unexplained or recurrent spontaneous Oral contraceptives or hormone replacement Sepsis (< 1 month) Serious lung disease, including pneumonia (< 1 month) Abnormal pulmonary function Acute myocardial infarction Congestive heart failure (< 1 month) History of inflammatory bowel disease Medical patient at bed rest Age 61-74 Arthroscopic surgery Major open surgery (> 45 min) Laparoscopic surgery (> 45 min) Malignancy Confined to bed (> 72 hours) Immobilizing plaster cast Central venous access Age >= 75 History of VTE Family history of VTE Factor V Leiden Prothrombin [id number] Lupus anticoagulant Anticardiolipin antibodies Elevated serum homocysteine Heparin-induced thrombocytopenia Other congenital or acquired thrombophilia Stroke (< 1 month) Elective arthroplasty Hip, pelvis, or leg fracture Acute spinal cord injury (< 1 month) Prophylaxis Regimen: Total Risk Factor Score Risk Level Prophylaxis Regimen 0-1 Low Early ambulation 2 Moderate Order ONE of the following: *Sequential Compression Device (SCD) *Heparin 5000 units SQ BID 3-4 Higher Order ONE of the following medications: *Heparin 5000 units SQ TID *Enoxaparin/Lovenox 40 mg SQ daily (WT < 150 kg, CrCl > 30 mL/min) *Enoxaparin/Lovenox 30 mg SQ daily (WT < 150 kg, CrCl > 10-29 mL/min) *Enoxaparin/Lovenox 30 mg SQ BID (WT < 150 kg, CrCl > 30 mL/min) AND/OR *Sequential Compression Device (SCD) 5 or more Highest Order ONE of the following medications: *Heparin 5000 units SQ TID (Preferred with Epidurals) *Enoxaparin/Lovenox 40 mg SQ daily (WT < 150 kg, CrCl > 30 mL/min) *Enoxaparin/Lovenox 30 mg SQ daily (WT < 150 kg, CrCl > 10-29 mL/min) *Enoxaparin/Lovenox 30 mg SQ BID (WT < 150 kg, CrCl > 30 mL/min) AND *Sequential Compression Device (SCD) Assessment and Plan - Assessment (1) Chest pain Code(s): R07.9 - Chest pain, unspecified Status: Acute (2) Cellulitis Code(s): L03.90 - Cellulitis, unspecified Status: Acute - Plan This is a 57-year-old female patient with: Chest pain, atypical -Patient has been admitted to the chest pain center for observation. Serial EKGs and serial troponins been ordered for ruling out ACS purposes. Initial troponin flat. Continue to monitor trend. -EKG reviewed, no ST changes to indicate ischemia, controlled heart rate, normal sinus rhythm. -Continue on cardiac telemetry, monitor for any arrhythmias. -Chest x-ray reviewed, no acute cardiopulmonary disease noted. -Patient does have a history of CAD with cardiac stent placement x6. Does not follow with a turret punch operator. -Last stress test was in May 2015, she did have stent placements placed at this time. -If ACS ruled out by serial EKGs and serial troponins, patient will undergo a cardiac nuclear stress test in a.m. to further rule out any ischemia. -Patient's risk factors include significant family history of cardiovascular disease, tobacco abuse, and history of CAD herself. -Patient is stable at this time and agreeable to the plan. Further hospitalization and treatment plan will depend on nuclear imaging results. Right thigh cellulitis/ulcer -Patient states that she has had a boil that has been draining for roughly a week now. -CBC/BMP reviewed, essentially unremarkable. -Upon assessment patient does have an open 0.5 x 0.5 cm area, no induration noted, draining serosanguineous fluid. -Patient started on Ancef IV x3 doses. Will assess response. fabricator assembler metal products to assess wound with further recommendations. Patient has limited follow-up due to lack of insurance. -Supportive care. DVT prophylaxis: SCDs. (1) Chest pain Qualifiers: Chest pain type: unspecified Qualified Code(s): R07.9 - Chest pain, unspecified (2) Cellulitis Qualifiers: Site of cellulitis: extremity Site of cellulitis of extremity: lower extremity Laterality: right Qualified Code(s): L03.115 - Cellulitis of right lower limb
[2017-12-27] MEDS: Sod Chloride 0.9% Inj 1,000 ML IV.CONT SCH (17:15)
[2017-12-27 18:02] LABS: Creatine Kinase 83 U/L (26-192)
[2017-12-27] MEDS: Morphine Sulfate Inj 2 MG/ML Vial IV.PUSH PRN (20:01)
[2017-12-27] MEDS: guaiFENesin/Dextromethorphan 200 MG/20 MG 10 ML UDC PO PRN (20:01)
[2017-12-27] MEDS ORDERED: Melatonin 5 MG Tablet PO SCH (22:30)
[2017-12-27 22:43] LABS: Creatine Kinase 62 U/L (26-192)
[2017-12-28] MEDS: Morphine Sulfate Inj 2 MG/ML Vial IV.PUSH PRN ×2 (01:43→09:53)
[2017-12-28] MEDS: guaiFENesin/Dextromethorphan 200 MG/20 MG 10 ML UDC PO PRN (01:48)
[2017-12-28] MEDS: Sod Chloride 0.9% Inj 1,000 ML IV.CONT SCH (05:32)
--- NOTE | 2017-12-28 08:22 | P.PNWCN ---
Wound Care Nurse Consult Description: Wound consult ordered by Camryn BOJORQUEZ Communicated with: Ernesto URIAS, Camryn BOJORQUEZ Recommendation: 1. Cleanse Right inner thigh wound with normal saline pat dry. 2. Apply skin prep to surrounding tissue , Apply thin even layer of Calazime to periwound . 3. Gently pack wound base with Maxorb AG cut to fit wound base cover with dry 2x2 gauze , secure with border gauze. 4. Change dressing every 3-5 days or as needed for exudate /dislodgement. 5. Please feel free to contact wound care team if wound worsens or treatment fails. Additional information: Patient was seen today by keno writer for wound management.Patient alert and oriented x4 resting in bed in no acute distress. Dressing removed from right inner thigh. wound cleansed with normal saline pat dry. Culture swab obtained and delivered to lab.Patient states she does not remember being bit by anything nor any skin trauma. Patient has 1.0cm x 1.0cm x 0.3cm full thickness wound to right inner thigh.Wound base is 80% moist red non granular tissue 15% slough and 5% black necrotic tissue .Erythema with induration noted ~2.0cm circumferentially of wound base warm to touch.Moderate serosanguineous exudate noted with out odor.Calazime cream applied in thin even layer to periwound Maxorb AG cut to fit wound base applied and covered with dry dressing after skin prep applied .Dressing signed and dated. Patient had not further questions or concerns upon writers departure. Wound/Pressure Injury - Wound Right Thigh Wound Assessment: Admission Wound Type: Abscess Is This a Chronic Wound: No Requested from Provider a Wound Care Consult: No (Yanni URIAS,[facility] seen 12/28) Length (cm): 1.0 Width (cm): 1.0 Wound Bed Appearance: Necrotic, Red, Yellow Surrounding Tissue Appearance: Erythema, Indurated Surrounding Tissue Temperature: Warm Drainage Description: Serosanguinous Drainage Amount: Minimal Drainage Odor: No Odor Dressing Status: Changed Cleansing Solution: Saline Wound Packing Type: Alginate Primary Dressing: Gauze Pad Cover Dressing: Adhesive Dressing Wound Dressing Change Date: 12/28/17
[2017-12-28 09:06] VITALS: RESP 16
--- NOTE | 2017-12-28 09:36 | P.PNIM ---
Subjective Interval history: Follow-up chest pain and left thigh wound. Patient seen and examined, lying in bed states that she still has continued intermittent chest pain. Resolved with pain medications. consulting senior practice director and to see patient today, see recommendations. Patient to undergo Lexiscan this morning. Awaiting results. No other complaints. Physical Exam Vital signs: Vital Signs 12/27/17 11:55 12/27/17 13:00 12/27/17 13:28 Temperature 98.6 F Pulse Rate 85 82 70 Respiratory Rate 18 14 18 Blood Pressure 162/91 H 162/91 H 149/77 H Pulse Oximetry 97 97 97 12/27/17 14:11 12/27/17 14:12 12/27/17 14:57 Temperature Pulse Rate 55 L Respiratory Rate 16 Blood Pressure 146/61 H Pulse Oximetry 97 96 12/27/17 15:14 12/27/17 17:53 12/27/17 20:00 Temperature 97.6 F Pulse Rate 63 70 Respiratory Rate 18 17 20 Blood Pressure 146/77 H 126/65 Pulse Oximetry 95 98 12/28/17 00:00 12/28/17 04:00 12/28/17 08:00 Temperature 97.7 F 97.2 F L Pulse Rate 68 71 57 L Respiratory Rate 20 16 Blood Pressure 139/67 125/68 Pulse Oximetry 99 98 Intake & Output 12/27/17 12/28/17 12/28/17 18:59 06:59 18:59 Intake Total 240 / 240 1560 / 1560 Balance 240 / 240 1560 / 1560 Weight 67.7 kg 68.6 kg Intake: IV 1200 / 1200 NS Inj 1,000 ML @ 84 mls/hr IV. 1000 / 1000 CONT .[id number] [place] Rx#: [id number] Ancef Inj 1,000 MG In NS Inj 200 / 200 100 ML @ 200 mls/hr IV.SIG Q8H [place] Rx#:[id number] Oral 240 / 240 360 / 360 Other: # Voids 1 7 Date of Last Bowel Movement 12/27/17 12/27/17 Weight On Admission 67.7 kg Narrative: GENERAL: Well-developed, well-nourished patient in [facility]. SKIN: Warm and dry. No rash. Right thigh cellulitis with full thickness wound, round open area with serosanguineous drainage, roughly 1x1cm with surrounding erythema as well as small area of necrotic tissue.. HEAD: Normocephalic. Atraumatic. EYES: Pupils equal and round. No scleral icterus. No injection or drainage. ENT: No nasal bleeding or discharge. Mucous membranes pink and moist. NECK: Supple. Trachea midline. CARDIOVASCULAR: Regular rate and rhythm. S1, S2 noted. No murmur appreciated. RESPIRATORY: No accessory muscle use. Clear to auscultation. Breath sounds equal bilaterally. GASTROINTESTINAL: Abdomen soft, non-tender, nondistended. Normoactive bowel sounds x4. MUSCULOSKELETAL: No obvious deformities. Extremities without clubbing, cyanosis , or edema. NEUROLOGICAL: Awake and alert. No obvious cranial nerve deficits. Motor grossly within normal limits. 5/5 muscle strength in bilateral upper and lower extremities. Normal speech. PSYCHIATRIC: Appropriate mood and affect; insight and judgment normal. Results - Labs CBC & Chem 7: 12/27/17 12:58 12/27/17 12:58 Laboratory Results - last 24 hr 12/27/17 12/27/17 12/27/17 12:58 12:58 12:58 CBC w Diff Auto diff final WBC 5.6 RBC 4.86 Hgb 14.4 Hct 42.6 MCV 87.7 MCH 29.7 MCHC 33.8 RDW 12.7 Plt Count 297 MPV 8.7 Neut % (Auto) 56.9 Lymph % (Auto) 31.3 [place] % (Auto) 7.6 Eos % (Auto) 0.6 Baso % (Auto) 3.6 H Neut # (Auto) 3.2 Lymph # (Auto) 1.8 [place] # (Auto) 0.4 Eos # (Auto) 0.0 Baso # (Auto) 0.2 WBC Differential . Differential Comment . PT 9.7 L INR 1.0 APTT 23.3 L Sodium 141 Potassium 3.5 Chloride 107 Carbon Dioxide 26.0 Anion Gap 8 BUN 7 Creatinine 0.61 Estimated GFR Greater than 89 Random Glucose 86 Calcium 8.9 Total Bilirubin 0.4 AST 22 ALT 19 Alkaline Phosphatase 89 Total Creatine Kinase 79 Troponin I Less than 0.02 L B-Natriuretic Peptide Total Protein 7.2 Albumin 3.8 12/27/17 12/27/17 12/27/17 12:58 17:15 21:52 CBC w Diff WBC RBC Hgb Hct MCV MCH MCHC RDW Plt Count MPV Neut % (Auto) Lymph % (Auto) [place] % (Auto) Eos % (Auto) Baso % (Auto) Neut # (Auto) Lymph # (Auto) [place] # (Auto) Eos # (Auto) Baso # (Auto) WBC Differential Differential Comment PT INR APTT Sodium Potassium Chloride Carbon Dioxide Anion Gap BUN Creatinine Estimated GFR Random Glucose Calcium Total Bilirubin AST ALT Alkaline Phosphatase Total Creatine Kinase 83 62 Troponin I Less than 0.02 L Less than 0.02 L B-Natriuretic Peptide 54 Total Protein Albumin - Imaging Impressions Chest X-Ray 12/27/17 12:26 CONCLUSION: Negative for an acute process, history of cardiac disease with stent placement Assessment and Plan - Assessment (1) Chest pain Code(s): R07.9 - Chest pain, unspecified Status: Acute (2) Cellulitis Code(s): L03.90 - Cellulitis, unspecified Status: Acute - Plan This is a 57-year-old female patient with: Chest pain, atypical -Patient has been admitted to the chest pain center for observation. Serial EKGs and serial troponins been ordered for ruling out ACS purposes. Troponin trend flat. -EKG reviewed, no ST changes to indicate ischemia, controlled heart rate, normal sinus rhythm. -Continue on cardiac telemetry, monitor for any arrhythmias. No arrhythmias overnight. -Chest x-ray reviewed, no acute cardiopulmonary disease noted. -Patient does have a history of CAD with cardiac stent placement x6. 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 -Last stress test was in May 2015, she did have stent placements placed at this time. -ACS ruled out by serial EKGs and serial troponins, patient will undergo a cardiac nuclear stress test to further rule out any ischemia. -Patient's risk factors include significant family history of cardiovascular disease, tobacco abuse, and history of CAD herself. -Patient is stable at this time and agreeable to the plan. Further hospitalization and treatment plan will depend on nuclear imaging results. Right thigh cellulitis/ulcer, full-thickness wound -Patient states that she has had a boil that has been draining for roughly a week now. -CBC/BMP reviewed, essentially unremarkable. -Upon assessment patient does have an open one by one cm area, no induration noted, draining serosanguineous fluid surrounding erythema with small area of necrosis. -Patient started on Ancef IV x3 doses. consulting senior practice director to assess wound, appreciate recommendations. Patient has limited follow-up due to lack of insurance. Case management assisting. -Supportive care. DVT prophylaxis: SCDs. Discharge Planning: Will discharge patient home today after Lexiscan if negative. consulting senior practice director with recommendations for wound. Case management assisting with outpatient follow-up. (1) Chest pain Qualifiers: Chest pain type: unspecified Qualified Code(s): R07.9 - Chest pain, unspecified (2) Cellulitis Qualifiers: Site of cellulitis: extremity Site of cellulitis of extremity: lower extremity Laterality: right Qualified Code(s): L03.115 - Cellulitis of right lower limb
[2017-12-28] MEDS ORDERED: Regadenoson Inj 0.4 MG/5 ML Syringe IV.PUSH ONE (13:25)
--- NOTE | 2017-12-28 14:35 | NM ---
EXAM DATE: 12/28/2017 12:37 PM EDT AGE/SEX: 57 years / Female INDICATIONS:Angina. Stent Mid chest pain for one month. CLINICAL DATA: This is the patient's initial encounter. Patient reports that signs and symptoms have been present for 1 day and indicates a pain score of 5/10. MEDICAL/SURGICAL HISTORY: Gastroesophageal reflux disease. Cardiovascular disease. Cholecystec aron. Hysterectomy. COMPARISON: No prior exams available for comparison. No external comparison. DOSE: 8.7 mCi Tc 99m Myoview at rest 26/1 mCi [id number] at stress 0.4 mg Lexiscan STRESS SYMPTOMS: Short of breath and a headache. EJECTION FRACTION: 60 % TECHNIQUE: The patient underwent pharmacologic stress with infusion of prescribed dose. Continuous ECG tracing was monitored during stress. Gated SPECT imaging was performed after stress and conventi onal SPECT imaging was performed at rest. The examination was performed on a SPECT/CT scanner, both attenuation and non-corrected datasets were reviewed. FINDINGS: Distribution: The maximum perfused segment at stress is in the lateral wall. Perfusion Study: The pattern of perfusion at stress is within normal limits. Gated Study: There are intact wall motion and wall thickening without hypokinetic or dyskinetic segm ents. The ejection fraction is calculated at 60%. RISK CATEGORY: Low (<1% Annual Motality Rate) CONCLUSION: 1. No definite reversible perfusion defects are identified to suggest stress-induced myocardial isch emia. Electronically signed by: Haile Gorman MD 12/28/2017 2:33 PM EDT
[2017-12-28 16:31] VITALS: BP 137/69; PULSE 70; TEMP 97.8; O2SAT 97
--- NOTE | 2017-12-28 16:56 | TR ---
Date Performed: 12/28/2017 Time Performed: 13:41:34 DOCTOR: Ernesto Rain DRUG LIST: CLINICAL HISTORY: CHEST PAIN CHEST PAIN REASON FOR TEST: Angina REASON FOR ENDING: OBSERVATION: CONCLUSION: COMMENTS: Lexiscan stress test was performed under standard four minute protocol. Radionuclide was injected one minute prior to ending the test. No electrocardiographic abormalities were present t o suggest ischemia. Nuclear imaging and interpretation are pending.
--- NOTE | 2017-12-28 20:17 | ECG ---
Date Performed: 12/27/2017 Time Performed: 21:27:39 PTAGE: 57 years EKG: Sinus rhythm NORMAL ECG PREVIOUS TRACING : 12/27/2017 18.03 Since the previous tracing, no significant change noted DOCTOR: Keith Sandhu Interpretating Date/Time 12/28/2017 20:14:58
--- NOTE | 2017-12-28 20:27 | ECG ---
Date Performed: 12/27/2017 Time Performed: 18:03:32 PTAGE: 57 years EKG: Sinus rhythm NORMAL ECG PREVIOUS TRACING : 12/27/2017 12.09 Since the previous tracing, no significant change noted DOCTOR: Keith Sandhu Interpretating Date/Time 12/28/2017 20:26:39
--- NOTE | 2017-12-28 20:54 | ECG ---
Date Performed: 12/27/2017 Time Performed: 12:09:44 PTAGE: 57 years EKG: Sinus rhythm NORMAL ECG PREVIOUS TRACING : 07/09/2017 12.27 Since the previous tracing, no significant change noted DOCTOR: Keith Sandhu Interpretating Date/Time 12/28/2017 20:53:27
== END 2017-12-28 19:40 | disposition home or self-care (01) ==
LOC: PHEDA 11:32 → PHED 11:32 → PH3 15:46
PROVIDERS: ADMIT Internal Medicine; ATTEND Internal Medicine
DX: Z95.5 Presence of coronary angioplasty implant and graft; Z90.710 Acquired absence of both cervix and uterus; B95.61 Methicillin susceptible Staphylococcus aureus infection as the cause of diseases classified elsewhere; Z82.49 Family history of ischemic heart disease and other diseases of the circulatory system; F17.210 Nicotine dependence, cigarettes, uncomplicated; L02.92 Furuncle, unspecified; K85.90 Acute pancreatitis without necrosis or infection, unspecified; I25.10 Atherosclerotic heart disease of native coronary artery without angina pectoris; K21.9 Gastro-esophageal reflux disease without esophagitis; R07.9 Chest pain, unspecified; Z90.49 Acquired absence of other specified parts of digestive tract; G43.009 Migraine without aura, not intractable, without status migrainosus; L03.115 Cellulitis of right lower limb